=== PATIENT | female | born 1965 | race Caucasian/White ===

== ENCOUNTER → 2018-07-16 11:27 | Outpatient (CLI) | payer BC, SELFPAY ==
[2018-07-16 15:46] LABS: Abs Immature Grans 0.02 k/cumm (0.0-0.09); Absolute Basophil Count 0.02 k/cumm (0.0-0.2); Absolute Eosinophil Count 0.23 k/cumm (0.0-0.7); Absolute Lymphocyte Count 2.66 k/cumm (1.2-3.4); Absolute Monocyte Count 0.71 k/cumm (0.11-0.7); Absolute Neutrophil Count 4.89 k/cumm (1.2-6.7); Basophils % 0.2; Eosinophils % 2.7; HCT 42.2 % (36.0-46.0); HGB 14.3 g/dL (12.0-15.5); Immature Grans % 0.2; Lymphocytes % 31.2; Mean Corp. HGB Concentration 33.9 g/dL (32.0-36.0); Mean Corpuscular Hemoglobin 31.7 pg (27.0-33.0); Mean Corpuscular Volume 93.6 fL (80-95); Mean Platelet Volume 11.4 fL (8.0-11.0); Monocytes % 8.3; Neutrophils % 57.4; Platelet Count 185 x1000/uL (130-400); RBC 4.51 m/cumm (4.00-5.20); RBC Distribution Width 14.1 % (11.7-14.6); White Blood Cell Count 8.53 k/cumm (4.4-10.8)
[2018-07-16 16:04] LABS: ALT 20 U/L (12-78); AST 19 U/L (15-37); Albumin 3.7 g/dL (3.4-5.0); Alkaline Phosphatase 82 U/L (46-116); BUN 15 mg/dL (7-18); Bilirubin, Total 0.2 mg/dL (0.2-1.0); CREATININE 0.76 mg/dL (0.55-1.02); Calcium 9.2 mg/dL (8.5-10.1); Chloride 101 mmol/L (98-107); Glucose 88 mg/dL (70-100); Sodium 137 mmol/L (136-145); TSH (W/Ref FT4) 7.17 uIU/mL (0.358-3.74); Total Protein 7.5 g/dL (6.4-8.2)
[2018-07-16 16:27] LABS: FREE T4 1.39 ng/dL (0.76-1.46)
== END ==
PROVIDERS: Internal Medicine; PCP Nurse Practitioner Family; Visit Provider Nurse Practitioner Family
DX: E03.9 Hypothyroidism, unspecified (principal); Z85.3 Personal history of malignant neoplasm of breast
CPT/HCPCS: 36415; 80053; 84439; 84443; 85025

== ENCOUNTER 2018-10-06 08:08 | Outpatient (CLI) | payer BC, SELFPAY ==
[2018-10-06 14:15] LABS: ALT 23 U/L (12-78); AST 18 U/L (15-37); Albumin 3.9 g/dL (3.4-5.0); Alkaline Phosphatase 82 U/L (46-116); Anion Gap 13.6 mmol/L (3-11); BUN 16 mg/dL (7-18); Bilirubin, Total 0.3 mg/dL (0.2-1.0); CO2 23.4 mmol/L (21.0-32.0); CREATININE 0.97 mg/dL (0.55-1.02); Chloride 100 mmol/L (98-107); Glucose 128 mg/dL (70-100); Potassium 3.7 mmol/L (3.5-5.1); Sodium 137 mmol/L (136-145); Total Protein 7.6 g/dL (6.4-8.2)
[2018-10-06 14:25] LABS: TSH (W/Ref FT4) 1.16 uIU/mL (0.358-3.74)
[2018-10-06 21:42] LABS: Estradiol 39 pg/ml
[2018-10-07 09:38] LABS: FSH 16.7 mIU/ml
== END 2018-10-06 08:28 ==
PROVIDERS: PCP Nurse Practitioner Family; Visit Provider Internal Medicine
DX: E03.9 Hypothyroidism, unspecified (principal); Z85.3 Personal history of malignant neoplasm of breast; N95.1 Menopausal and female climacteric states
CPT/HCPCS: 36415; 80053; 82670; 83001; 84443

== ENCOUNTER 2018-10-14 14:27 | Outpatient (CLI) | payer BC, SELFPAY ==
--- NOTE | 2018-10-14 09:02 | DI.RAD_ITS ---
SYMPTOM/DIAGNOSIS: BRONCHITIS VS PNEUMONIA. J20.9 ACUTE BRONCHITIS CHEST X-RAY: PA, lateral. Comparison 04/03/17 The heart is normal in size. The lungs are clear. The mediastinal structures and pleura appear intact. CONCLUSION: Normal chest.
== END 2018-10-14 14:47 ==
PROVIDERS: PCP Nurse Practitioner Family; Visit Provider Family Medicine
DX: J20.9 Acute bronchitis, unspecified (principal)
CPT/HCPCS: 71046

== ENCOUNTER 2018-11-17 15:17 | Outpatient (CLI) | payer BC, SELFPAY ==
--- NOTE | 2018-11-17 14:00 | DI.RAD_ITS ---
SYMPTOMS/DIAGNOSIS: COUGH DUE TO BRONCHOSPASM, TOBACCO USE, J98.01, F17.200 PA AND LATERAL CHEST: Comparison 10/14/18. The heart is normal in size. The lungs are clear. The mediastinal structures and pleura appear intact. CONCLUSION: Normal chest.
== END 2018-11-17 15:37 ==
PROVIDERS: PCP Nurse Practitioner Family; Visit Provider Nurse Practitioner Family
DX: R05 Cough (principal); J98.01 Acute bronchospasm; F17.200 Nicotine dependence, unspecified, uncomplicated
CPT/HCPCS: 71046

== ENCOUNTER 2019-04-24 10:59 | Outpatient (CLI) | payer BC, SELFPAY ==
[2019-04-24 17:12] LABS: ALT 27 U/L (12-78); AST 15 U/L (15-37); Albumin 3.7 g/dL (3.4-5.0); Alkaline Phosphatase 85 U/L (46-116); Anion Gap 11.7 mmol/L (3-11); BUN 18 mg/dL (7-18); Bilirubin, Total 0.1 mg/dL (0.2-1.0); CO2 24.3 mmol/L (21.0-32.0); CREATININE 0.78 mg/dL (0.55-1.02); Calcium 9.2 mg/dL (8.5-10.1); Chloride 100 mmol/L (98-107); Glucose 98 mg/dL (70-100); Potassium 4.1 mmol/L (3.5-5.1); Sodium 136 mmol/L (136-145); Total Protein 6.8 g/dL (6.4-8.2)
[2019-04-24 22:19] LABS: Estradiol 32 pg/ml
[2019-04-27 10:19] LABS: FSH 17.5 mIU/ml
== END 2019-04-24 11:19 ==
PROVIDERS: PCP Nurse Practitioner Family; Visit Provider Internal Medicine
DX: N95.1 Menopausal and female climacteric states (principal); Z85.3 Personal history of malignant neoplasm of breast
CPT/HCPCS: 36415; 80053; 82670; 83001

== ENCOUNTER 2019-10-20 01:52 | Outpatient (CLI) | payer BC, SELFPAY ==
[2019-10-20 08:57] LABS: ALT 22 U/L (14-59); AST 15 U/L (15-37); Albumin 3.6 g/dL (3.4-5.0); Alkaline Phosphatase 65 U/L (46-116); Anion Gap 9.7 mmol/L (3-11); BUN 10 mg/dL (7-18); Bilirubin, Total 0.4 mg/dL (0.2-1.0); CO2 26.3 mmol/L (21.0-32.0); CREATININE 0.78 mg/dL (0.55-1.02); Calcium 8.9 mg/dL (8.5-10.1); Calculated LDL 97 mg/dL; Chloride 103 mmol/L (98-107); Cholesterol 178 mg/dL (50-200); Glucose 96 mg/dL (70-100); HDL Cholesterol 69 mg/dL (40-60); Potassium 4.5 mmol/L (3.5-5.1); Sodium 139 mmol/L (136-145); TSH (W/Ref FT4) 0.25 uIU/mL (0.36-3.74); Total Protein 6.8 g/dL (6.4-8.2); Triglyceride 61 mg/dL (30-150)
[2019-10-20 09:19] LABS: FREE T4 1.62 ng/dL (0.76-1.46)
== END 2019-10-20 02:12 ==
PROVIDERS: PCP Nurse Practitioner Family; Visit Provider Nurse Practitioner Family
DX: E03.9 Hypothyroidism, unspecified (principal); Z13.1 Encounter for screening for diabetes mellitus; Z13.220 Encounter for screening for lipoid disorders
CPT/HCPCS: 36415; 80053; 80061; 84439; 84443

== ENCOUNTER 2020-01-25 07:05 | Outpatient (CLI) | payer BC, SELFPAY ==
[2020-01-25 15:07] LABS: ALT 22 U/L (14-59); AST 17 U/L (15-37); Albumin 3.8 g/dL (3.4-5.0); Alkaline Phosphatase 76 U/L (46-116); Anion Gap 13.5 mmol/L (3-11); BUN 17 mg/dL (7-18); Bilirubin, Total 0.3 mg/dL (0.2-1.0); CO2 21.5 mmol/L (21.0-32.0); CREATININE 0.75 mg/dL (0.55-1.02); Calcium 9.2 mg/dL (8.5-10.1); Chloride 104 mmol/L (98-107); Glucose 95 mg/dL (74-106); Potassium 4.3 mmol/L (3.5-5.1); Sodium 139 mmol/L (136-145)
[2020-01-26 16:13] LABS: Estradiol 28 pg/mL (See Note); FSH 17.7 mIU/mL (See Note)
== END 2020-01-25 07:25 ==
PROVIDERS: PCP Nurse Practitioner Family; Visit Provider Internal Medicine
DX: N95.1 Menopausal and female climacteric states (principal); C50.412 Malignant neoplasm of upper-outer quadrant of left female breast; Z17.0 Estrogen receptor positive status [ER+]
CPT/HCPCS: 36415; 80053; 82670; 83001

== ENCOUNTER 2020-04-20 01:07 | Outpatient (CLI) | payer BC, SELFPAY ==
[2020-04-20 11:31] LABS: TSH (W/Ref FT4) 0.44 uIU/mL (0.36-3.74)
== END 2020-04-20 01:27 ==
PROVIDERS: PCP Nurse Practitioner Family; Visit Provider Nurse Practitioner Family
DX: E03.9 Hypothyroidism, unspecified (principal)
CPT/HCPCS: 36415; 84443

== ENCOUNTER 2020-06-20 02:32 | Outpatient (CLI) | payer BC, SELFPAY ==
[2020-06-20 13:38] LABS: Abs Immature Grans 0.02 k/cumm (0.0-0.09); Absolute Basophil Count 0.02 k/cumm (0.0-0.2); Absolute Eosinophil Count 0.25 k/cumm (0.0-0.7); Absolute Lymphocyte Count 2.35 k/cumm (1.2-3.4); Absolute Monocyte Count 0.64 k/cumm (0.11-0.7); Absolute Neutrophil Count 5.67 k/cumm (1.2-6.7); Basophils % 0.2; Eosinophils % 2.8; HCT 41.4 % (36.0-46.0); HGB 14.2 g/dL (12.0-15.5); Immature Grans % 0.2 %; Lymphocytes % 26.3; Mean Corp. HGB Concentration 34.3 g/dL (32.0-36.0); Mean Corpuscular Hemoglobin 32.5 pg (27.0-33.0); Mean Corpuscular Volume 94.7 fL (80-95); Mean Platelet Volume 11.1 fL (8.0-11.0); Monocytes % 7.2; Neutrophils % 63.3; Platelet Count 221 x1000/uL (130-400); RBC 4.37 m/cumm (4.00-5.20); RBC Distribution Width 13.7 % (11.7-14.6); White Blood Cell Count 8.95 k/cumm (4.4-10.8)
[2020-06-20 14:13] LABS: ALT 23 U/L (14-59); AST 17 U/L (15-37); Albumin 3.6 g/dL (3.4-5.0); Alkaline Phosphatase 77 U/L (46-116); BUN 19 mg/dL (7-18); Bilirubin, Total 0.2 mg/dL (0.2-1.0); CREATININE 0.76 mg/dL (0.55-1.02); Calcium 9.2 mg/dL (8.5-10.1); Chloride 103 mmol/L (98-107); Glucose 117 mg/dL (74-106); Potassium 3.8 mmol/L (3.5-5.1); Sodium 137 mmol/L (136-145); Total Protein 6.8 g/dL (6.4-8.2)
[2020-06-20 22:07] LABS: Estradiol 31 pg/mL (See Note)
[2020-06-21 09:16] LABS: FSH 16.9 mIU/mL (See Note)
== END 2020-06-20 02:52 ==
PROVIDERS: PCP Nurse Practitioner Family; Visit Provider Internal Medicine
DX: Z85.3 Personal history of malignant neoplasm of breast (principal); N95.1 Menopausal and female climacteric states
CPT/HCPCS: 36415; 80053; 82670; 83001; 85025

== ENCOUNTER 2021-01-13 02:30 | Outpatient (CLI) | payer BC, SELFPAY ==
[2021-01-13 15:07] LABS: Abs Immature Grans 0.02 10^3/uL (0.0-0.06); Absolute Basophil Count 0.04 10^3/uL (0.0-0.2); Absolute Eosinophil Count 0.19 10^3/uL (0.0-0.7); Absolute Lymphocyte Count 2.22 10^3/uL (1.2-3.4); Absolute Monocyte Count 0.72 10^3/uL (0.1-0.8); Basophils % 0.5; Eosinophils % 2.3; HCT 43.4 % (36.0-46.0); HGB 14.7 g/dL (11.2-15.7); Immature Grans % 0.2; Lymphocytes % 27.4; MCH 31.6 pg (27.0-33.0); MCHC 33.9 % (32.0-36.0); MCV 93.3 fL (80-95); MPV 11.1 fL (8.0-11.0); Monocytes % 8.9; Neutrophils % 60.7; Nucleated RBC 0 %; Platelet Count 205 10^3/uL (130-400); RBC 4.65 10^6/uL (3.93-5.22); RDW 13.2 % (11.7-14.6); RDW-SD 45.1 fL; WBC 8.09 10^3/uL (4.4-10.8)
[2021-01-13 15:50] LABS: Hemoglobin A1C 5.2 % (<5.7)
[2021-01-13 17:00] LABS: ALT 26 U/L (14-59); AST 20 U/L (15-37); Albumin 3.8 g/dL (3.4-5.0); Alkaline Phosphatase 82 U/L (46-116); Anion Gap 11.7 mmol/L (3-11); BUN 15 mg/dL (7-18); Bilirubin, Total 0.2 mg/dL (0.2-1.0); CO2 22.3 mmol/L (21.0-32.0); CREATININE 0.6 mg/dL (0.55-1.02); Calcium 9.3 mg/dL (8.5-10.1); Chloride 101 mmol/L (98-107); Glucose 89 mg/dL (74-106); Potassium 4.4 mmol/L (3.5-5.1); Sodium 135 mmol/L (136-145); Total Protein 7.1 g/dL (6.4-8.2)
[2021-01-13 17:10] LABS: TSH (W/Ref FT4) 0.26 uIU/mL (0.36-3.74)
[2021-01-13 17:27] LABS: FREE T4 1.73 ng/dL (0.76-1.46)
[2021-01-13 22:16] LABS: Estradiol 34 pg/mL (See Note)
[2021-01-13 22:30] LABS: FSH 16.2 mIU/mL (See Note)
[2021-01-16 11:17] LABS: Hepatitis C Ab w Rflx HCV PCR Negative (Negative)
[2021-01-16 12:03] LABS: HIV-1/2 Ag & Ab Screen Negative (Negative)
== END 2021-01-13 02:31 | disposition home or self-care (01) ==
LOC: LBO 02:30
PROVIDERS: Internal Medicine; PCP Nurse Practitioner Family; Visit Provider Nurse Practitioner Family
DX: R73.01 Impaired fasting glucose (principal); E03.9 Hypothyroidism, unspecified; N95.1 Menopausal and female climacteric states; Z11.4 Encounter for screening for human immunodeficiency virus [HIV]; Z11.59 Encounter for screening for other viral diseases
CPT/HCPCS: 36415; 80053; 86803; 87389; 82670; 83001; 83036; 84439; 84443; 85025

== ENCOUNTER 2021-02-16 09:18 | Outpatient (CLI) | payer BC, SELFPAY ==
[2021-02-17 13:09] LABS: COVID-19 RT-PCR UVMMC Result Negative (Negative)
== END 2021-02-16 09:19 | disposition home or self-care (01) ==
PROVIDERS: PCP Nurse Practitioner Family; Visit Provider Nurse Practitioner Family
DX: Z20.822 Contact with and (suspected) exposure to COVID-19 (principal)
CPT/HCPCS: U0003

== ENCOUNTER 2021-04-25 03:23 | Outpatient (CLI) | payer BC, SELFPAY ==
[2021-04-25 10:14] LABS: TSH (W/Ref FT4) 2.25 uIU/mL (0.36-3.74)
== END 2021-04-25 03:24 | disposition home or self-care (01) ==
LOC: LBO 03:23
PROVIDERS: PCP Nurse Practitioner Family; Visit Provider Nurse Practitioner Family
DX: E03.9 Hypothyroidism, unspecified (principal)
CPT/HCPCS: 36415; 84443

== ENCOUNTER 2021-06-27 03:33 | Outpatient (CLI) | payer BC, SELFPAY ==
[2021-06-27 11:56] LABS: ALT 24 U/L (14-59); AST 19 U/L (15-37); Albumin 3.6 g/dL (3.4-5.0); Alkaline Phosphatase 75 U/L (46-116); Anion Gap 8.8 mmol/L (3-11); BUN 11 mg/dL (7-18); Bilirubin, Total 0.3 mg/dL (0.2-1.0); CO2 26.2 mmol/L (21.0-32.0); CREATININE 0.7 mg/dL (0.55-1.02); Calcium 9.1 mg/dL (8.5-10.1); Chloride 104 mmol/L (98-107); Glucose 101 mg/dL (74-106); Potassium 4.8 mmol/L (3.5-5.1); Sodium 139 mmol/L (136-145)
[2021-06-27 16:40] LABS: Estradiol 32 pg/mL (See Note)
[2021-06-27 17:19] LABS: FSH 16.4 mIU/mL (See Note)
== END 2021-06-27 03:34 | disposition home or self-care (01) ==
PROVIDERS: PCP Nurse Practitioner Family; Visit Provider Nurse Practitioner Adult Health
DX: N95.1 Menopausal and female climacteric states (principal); Z85.3 Personal history of malignant neoplasm of breast
CPT/HCPCS: 80053; 82670; 83001

== ENCOUNTER 2022-01-08 03:44 | Outpatient (CLI) | payer BC, SELFPAY ==
[2022-01-08 16:51] LABS: ALT 27 U/L (14-59); AST 21 U/L (15-37); Albumin 4.1 g/dL (3.4-5.0); Alkaline Phosphatase 88 U/L (46-116); Anion Gap 15.6 mmol/L (3-11); BUN 19 mg/dL (7-18); Bilirubin, Total 0.3 mg/dL (0.2-1.0); CO2 20.4 mmol/L (21.0-32.0); CREATININE 0.7 mg/dL (0.55-1.02); Calcium 9.3 mg/dL (8.5-10.1); Chloride 99 mmol/L (98-107); Glucose 89 mg/dL (74-106); Potassium 4.5 mmol/L (3.5-5.1); Sodium 135 mmol/L (136-145); Total Protein 7.7 g/dL (6.4-8.2)
[2022-01-08 22:29] LABS: Estradiol 29 pg/mL (See Note)
== END 2022-01-08 03:45 | disposition home or self-care (01) ==
LOC: LBO 03:45
PROVIDERS: PCP Nurse Practitioner Family; Visit Provider Nurse Practitioner Adult Health
DX: N95.1 Menopausal and female climacteric states (principal); Z85.3 Personal history of malignant neoplasm of breast
CPT/HCPCS: 36415; 80053; 82670; 83001

== ENCOUNTER 2022-04-17 02:14 | Outpatient (CLI) | payer BC, SELFPAY | END 2022-04-17 02:15 | disposition home or self-care (01) | LOC: LBO 02:15 | PROVIDERS: PCP Nurse Practitioner Family; Visit Provider Internal Medicine ==

== ENCOUNTER 2022-05-08 01:22 | Outpatient (CLI) | payer BC, SELFPAY ==
[2022-05-08 15:42] LABS: ALT 25 U/L (14-59); AST 22 U/L (15-37); Albumin 3.6 g/dL (3.4-5.0); Alkaline Phosphatase 79 U/L (46-116); Anion Gap 12.3 mmol/L (3-11); BUN 10 mg/dL (7-18); Bilirubin, Total 0.4 mg/dL (0.2-1.0); CO2 21.7 mmol/L (21.0-32.0); Chloride 99 mmol/L (98-107); Estimated GFR 57.78 (mL/min/1.73m2); Glucose 124 mg/dL (74-106); Potassium 3.6 mmol/L (3.5-5.1); Sodium 133 mmol/L (136-145); Total Protein 7.4 g/dL (6.4-8.2)
[2022-05-08 16:35] LABS: FREE T4 1.48 ng/dL (0.76-1.46)
== END 2022-05-08 01:23 | disposition home or self-care (01) ==
LOC: LBO 01:23
PROVIDERS: PCP Nurse Practitioner Family; Visit Provider Internal Medicine
DX: E03.9 Hypothyroidism, unspecified (principal); C50.912 Malignant neoplasm of unspecified site of left female breast; Z17.0 Estrogen receptor positive status [ER+]
CPT/HCPCS: 36415; 80053; 84439; 84443

== ENCOUNTER 2022-07-10 03:24 | Outpatient (CLI) | payer BC, SELFPAY ==
[2022-07-10 11:22] LABS: TSH (W/Ref FT4) 4.67 uIU/mL (0.36-3.74)
[2022-07-10 11:40] LABS: FREE T4 1.44 ng/dL (0.76-1.46)
== END 2022-07-10 03:25 | disposition home or self-care (01) ==
LOC: LBO 03:24
PROVIDERS: Internal Medicine; PCP Nurse Practitioner Family; Visit Provider Nurse Practitioner Family
DX: E03.9 Hypothyroidism, unspecified (principal)
CPT/HCPCS: 36415; 84439; 84443

== ENCOUNTER 2022-12-18 08:31 | Outpatient (CLI) | payer BC, SELFPAY ==
[2022-12-18 08:20] LABS: Abs Immature Grans 0.03 10^3/uL (0.0-0.06); Absolute Basophil Count 0.03 10^3/uL (0.0-0.2); Absolute Eosinophil Count 0.17 10^3/uL (0.0-0.7); Absolute Lymphocyte Count 2.06 10^3/uL (1.2-3.4); Absolute Monocyte Count 0.68 10^3/uL (0.1-0.8); Basophils % 0.4; Eosinophils % 2.4; HGB 14.3 g/dL (11.2-15.7); Immature Grans % 0.4; Lymphocytes % 29.1; MCH 32.9 pg (27.0-33.0); MCV 97 fL (80-95); MPV 9.6 fL (8.0-11.0); Monocytes % 9.6; Neutrophils % 58.1; Platelet Count 214 10^3/uL (130-400); RBC 4.35 10^6/uL (3.93-5.22); RDW 13.5 % (11.7-14.6); RDW-SD 48.7 fL; WBC 7.07 10^3/uL (4.4-10.8)
[2022-12-18 08:52] LABS: ALT 21 U/L (14-59); AST 26 U/L (15-37); Alkaline Phosphatase 83 U/L (46-116); Anion Gap 9.1 mmol/L (3-11); BUN 7 mg/dL (7-18); Bilirubin, Total 0.5 mg/dL (0.2-1.0); CO2 25.9 mmol/L (21.0-32.0); CREATININE 0.8 mg/dL (0.55-1.02); Calcium 9.2 mg/dL (8.5-10.1); Chloride 94 mmol/L (98-107); Estimated GFR 86.96 (mL/min/1.73m2); Glucose 108 mg/dL (74-106); Potassium 4.1 mmol/L (3.5-5.1); Sodium 129 mmol/L (136-145); Total Protein 7.8 g/dL (6.4-8.2)
== END 2022-12-18 08:32 | disposition home or self-care (01) ==
LOC: LBO 08:32
PROVIDERS: PCP Nurse Practitioner Family; Visit Provider Internal Medicine
DX: C50.412 Malignant neoplasm of upper-outer quadrant of left female breast (principal); Z17.0 Estrogen receptor positive status [ER+]
CPT/HCPCS: 36415; 80053; 85025

== ENCOUNTER 2023-01-01 03:15 | Outpatient (CLI) | payer BC, SELFPAY ==
[2023-01-01 09:14] LABS: Abs Immature Grans 0.02 10^3/uL (0.0-0.06); Absolute Basophil Count 0.04 10^3/uL (0.0-0.2); Absolute Eosinophil Count 0.13 10^3/uL (0.0-0.7); Absolute Lymphocyte Count 1.42 10^3/uL (1.2-3.4); Absolute Monocyte Count 0.22 10^3/uL (0.1-0.8); Absolute Neutrophil Count 3.32 10^3/uL (1.2-6.7); Basophils % 0.8; Eosinophils % 2.5; HCT 40.4 % (36.0-46.0); HGB 14.1 g/dL (11.2-15.7); Immature Grans % 0.4; Lymphocytes % 27.6; MCH 33.3 pg (27.0-33.0); MCHC 34.9 % (32.0-36.0); MCV 95 fL (80-95); MPV 9.5 fL (8.0-11.0); Monocytes % 4.3; Neutrophils % 64.4; Platelet Count 245 10^3/uL (130-400); RBC 4.24 10^6/uL (3.93-5.22); RDW 12.6 % (11.7-14.6); RDW-SD 44.3 fL; WBC 5.15 10^3/uL (4.4-10.8)
[2023-01-01 09:38] LABS: ALT 19 U/L (14-59); AST 18 U/L (15-37); Albumin 3.9 g/dL (3.4-5.0); Alkaline Phosphatase 83 U/L (46-116); Anion Gap 10.3 mmol/L (3-11); BUN 8 mg/dL (7-18); Bilirubin, Total 0.6 mg/dL (0.2-1.0); CO2 24.7 mmol/L (21.0-32.0); CREATININE 0.9 mg/dL (0.55-1.02); Calcium 9.2 mg/dL (8.5-10.1); Chloride 96 mmol/L (98-107); Glucose 140 mg/dL (74-106); Potassium 3.9 mmol/L (3.5-5.1); Sodium 131 mmol/L (136-145); Total Protein 7.4 g/dL (6.4-8.2)
== END 2023-01-01 03:16 | disposition home or self-care (01) ==
LOC: LBO 03:15
PROVIDERS: PCP Nurse Practitioner Family; Visit Provider Internal Medicine
DX: C50.912 Malignant neoplasm of unspecified site of left female breast (principal); Z17.0 Estrogen receptor positive status [ER+]
CPT/HCPCS: 36415; 80053; 85025

== ENCOUNTER 2023-01-15 02:36 | Outpatient (CLI) | payer BC, SELFPAY ==
[2023-01-15 08:05] LABS: Absolute Lymphocyte Count 0.86 10^3/uL (1.2-3.4); HGB 12.8 g/dL (11.2-15.7); MCH 33.3 pg (27.0-33.0); MCHC 34.6 % (32.0-36.0); MCV 96 fL (80-95); Platelet Count 94 10^3/uL (130-400); RBC 3.84 10^6/uL (3.93-5.22); RDW 12.6 % (11.7-14.6)
[2023-01-15 08:21] LABS: ALT 14 U/L (14-59); AST 16 U/L (15-37); Albumin 3.8 g/dL (3.4-5.0); Alkaline Phosphatase 61 U/L (46-116); BUN 8 mg/dL (7-18); Bilirubin, Total 0.5 mg/dL (0.2-1.0); CREATININE 0.7 mg/dL (0.55-1.02); Calcium 8.8 mg/dL (8.5-10.1); Chloride 100 mmol/L (98-107); Estimated GFR 102.07 (mL/min/1.73m2); Glucose 99 mg/dL (74-106); Potassium 4.3 mmol/L (3.5-5.1); Sodium 135 mmol/L (136-145); Total Protein 7.3 g/dL (6.4-8.2)
[2023-01-15 08:29] LABS: Absolute Basophil Count 0.05 10^3/uL (0.0-0.2); Absolute Eosinophil Count 0.05 10^3/uL (0.0-0.7); Absolute Monocyte Count 0.07 10^3/uL (0.1-0.8); Absolute Neutrophil Count 0.72 10^3/uL (1.2-6.7); Diff Comment Manual Differential; RBC Morphology Normal
[2023-01-15 08:34] LABS: WBC 1.75 10^3/uL (4.4-10.8)
== END 2023-01-15 02:37 | disposition home or self-care (01) ==
LOC: LBO 02:36
PROVIDERS: PCP Nurse Practitioner Family; Visit Provider Internal Medicine
DX: C50.412 Malignant neoplasm of upper-outer quadrant of left female breast (principal); Z17.0 Estrogen receptor positive status [ER+]
CPT/HCPCS: 36415; 80053; 85025

== ENCOUNTER 2023-01-22 02:00 | Outpatient (CLI) | payer BC, SELFPAY ==
[2023-01-22 08:18] LABS: Absolute Basophil Count 0.02 10^3/uL (0.0-0.2); Absolute Eosinophil Count 0.07 10^3/uL (0.0-0.7); Absolute Lymphocyte Count 0.62 10^3/uL (1.2-3.4); Absolute Monocyte Count 0.43 10^3/uL (0.1-0.8); Absolute Neutrophil Count 1.18 10^3/uL (1.2-6.7); Basophils % 0.9; HCT 37.1 % (36.0-46.0); Lymphocytes % 26.7; MCH 33.2 pg (27.0-33.0); MCV 95 fL (80-95); MPV 9.3 fL (8.0-11.0); Monocytes % 18.5; Neutrophils % 50.9; Platelet Count 171 10^3/uL (130-400); RBC 3.92 10^6/uL (3.93-5.22); RDW 13.2 % (11.7-14.6); RDW-SD 45.4 fL; WBC 2.32 10^3/uL (4.4-10.8)
[2023-01-22 08:34] LABS: ALT 17 U/L (14-59); AST 12 U/L (15-37); Albumin 3.7 g/dL (3.4-5.0); Alkaline Phosphatase 64 U/L (46-116); Anion Gap 7.8 mmol/L (3-11); BUN 6 mg/dL (7-18); Bilirubin, Total 0.2 mg/dL (0.2-1.0); CO2 26.2 mmol/L (21.0-32.0); CREATININE 0.7 mg/dL (0.55-1.02); Chloride 99 mmol/L (98-107); Estimated GFR 102.07 (mL/min/1.73m2); Glucose 109 mg/dL (74-106); Potassium 4.2 mmol/L (3.5-5.1); Sodium 133 mmol/L (136-145); Total Protein 7.2 g/dL (6.4-8.2)
== END 2023-01-22 02:01 | disposition home or self-care (01) ==
LOC: LBO 02:00
PROVIDERS: PCP Nurse Practitioner Family; Visit Provider Internal Medicine
DX: C50.912 Malignant neoplasm of unspecified site of left female breast (principal); Z17.0 Estrogen receptor positive status [ER+]
CPT/HCPCS: 36415; 80053; 85025

== ENCOUNTER 2023-02-05 03:38 | Outpatient (CLI) | payer BC, SELFPAY ==
[2023-02-05 10:05] LABS: Absolute Basophil Count 0.04 10^3/uL (0.0-0.2); Absolute Eosinophil Count 0.14 10^3/uL (0.0-0.7); Absolute Monocyte Count 0.23 10^3/uL (0.1-0.8); Absolute Neutrophil Count 1.38 10^3/uL (1.2-6.7); Basophils % 1.6; Eosinophils % 5.6; HCT 38.5 % (36.0-46.0); HGB 13.4 g/dL (11.2-15.7); Lymphocytes % 28.1; MCH 33.3 pg (27.0-33.0); MCHC 34.8 % (32.0-36.0); MCV 96 fL (80-95); MPV 9.9 fL (8.0-11.0); Monocytes % 9.2; Neutrophils % 55.5; Platelet Count 227 10^3/uL (130-400); RBC 4.03 10^6/uL (3.93-5.22); RDW 13.5 % (11.7-14.6); RDW-SD 47.7 fL; WBC 2.49 10^3/uL (4.4-10.8)
[2023-02-05 10:23] LABS: ALT 20 U/L (14-59); AST 14 U/L (15-37); Albumin 3.9 g/dL (3.4-5.0); Alkaline Phosphatase 66 U/L (46-116); Anion Gap 8.7 mmol/L (3-11); BUN 10 mg/dL (7-18); Bilirubin, Total 0.3 mg/dL (0.2-1.0); CO2 27.3 mmol/L (21.0-32.0); CREATININE 0.8 mg/dL (0.55-1.02); Calcium 9.5 mg/dL (8.5-10.1); Chloride 100 mmol/L (98-107); Estimated GFR 86.96 (mL/min/1.73m2); Glucose 102 mg/dL (74-106); Potassium 4.6 mmol/L (3.5-5.1); Sodium 136 mmol/L (136-145); Total Protein 7.6 g/dL (6.4-8.2)
== END 2023-02-05 03:39 | disposition home or self-care (01) ==
LOC: LBO 03:38
PROVIDERS: PCP Nurse Practitioner Family; Visit Provider Internal Medicine
DX: C50.912 Malignant neoplasm of unspecified site of left female breast (principal); Z17.0 Estrogen receptor positive status [ER+]
CPT/HCPCS: 36415; 80053; 85025

== ENCOUNTER 2023-02-12 02:30 | Outpatient (CLI) | payer BC, SELFPAY ==
[2023-02-12 08:37] LABS: Abs Immature Grans 0.01 10^3/uL (0.0-0.06); Absolute Basophil Count 0.04 10^3/uL (0.0-0.2); Absolute Eosinophil Count 0.17 10^3/uL (0.0-0.7); Absolute Lymphocyte Count 0.63 10^3/uL (1.2-3.4); Absolute Monocyte Count 0.24 10^3/uL (0.1-0.8); Absolute Neutrophil Count 0.78 10^3/uL (1.2-6.7); Basophils % 2.1; Eosinophils % 9.1; HCT 36.2 % (36.0-46.0); HGB 12.5 g/dL (11.2-15.7); Immature Grans % 0.5; Lymphocytes % 33.7; MCH 33.4 pg (27.0-33.0); MCHC 34.5 % (32.0-36.0); MCV 97 fL (80-95); MPV 9.5 fL (8.0-11.0); Monocytes % 12.8; Neutrophils % 41.8; Platelet Count 106 10^3/uL (130-400); RBC 3.74 10^6/uL (3.93-5.22)
[2023-02-12 08:48] LABS: WBC 1.87 10^3/uL (4.4-10.8)
[2023-02-12 08:52] LABS: ALT 20 U/L (14-59); AST 14 U/L (15-37); Albumin 3.5 g/dL (3.4-5.0); Alkaline Phosphatase 59 U/L (46-116); Anion Gap 11.5 mmol/L (3-11); BUN 9 mg/dL (7-18); Bilirubin, Total 0.3 mg/dL (0.2-1.0); CO2 24.5 mmol/L (21.0-32.0); CREATININE 0.8 mg/dL (0.55-1.02); Calcium 8.9 mg/dL (8.5-10.1); Chloride 102 mmol/L (98-107); Estimated GFR 86.96 (mL/min/1.73m2); Glucose 97 mg/dL (74-106); Potassium 4.3 mmol/L (3.5-5.1); Sodium 138 mmol/L (136-145); Total Protein 7.3 g/dL (6.4-8.2)
[2023-02-12 09:11] LABS: RBC Morphology Normal
[2023-02-12 09:12] LABS: Diff Comment Agrees w/ Instrument
== END 2023-02-12 02:31 | disposition home or self-care (01) ==
PROVIDERS: PCP Nurse Practitioner Family; Visit Provider Internal Medicine
DX: C50.912 Malignant neoplasm of unspecified site of left female breast (principal); Z17.0 Estrogen receptor positive status [ER+]
CPT/HCPCS: 36415; 80053; 85025

== ENCOUNTER 2023-02-18 04:03 | Outpatient (CLI) | payer BC, SELFPAY ==
[2023-02-18 09:34] LABS: Absolute Basophil Count 0.03 10^3/uL (0.0-0.2); Absolute Eosinophil Count 0.27 10^3/uL (0.0-0.7); Absolute Lymphocyte Count 0.73 10^3/uL (1.2-3.4); Absolute Monocyte Count 0.34 10^3/uL (0.1-0.8); Absolute Neutrophil Count 0.77 10^3/uL (1.2-6.7); Basophils % 1.4; Eosinophils % 12.6; HCT 35.5 % (36.0-46.0); HGB 12.8 g/dL (11.2-15.7); Lymphocytes % 34.1; MCH 33.9 pg (27.0-33.0); MCHC 36.1 % (32.0-36.0); MCV 94 fL (80-95); MPV 9.3 fL (8.0-11.0); Monocytes % 15.9; Platelet Count 159 10^3/uL (130-400); RBC 3.78 10^6/uL (3.93-5.22); RDW 14.6 % (11.7-14.6); RDW-SD 49.7 fL; WBC 2.14 10^3/uL (4.4-10.8)
[2023-02-18 09:51] LABS: ALT 21 U/L (14-59); AST 13 U/L (15-37); Albumin 3.7 g/dL (3.4-5.0); Alkaline Phosphatase 61 U/L (46-116); Anion Gap 9.9 mmol/L (3-11); BUN 9 mg/dL (7-18); Bilirubin, Total 0.2 mg/dL (0.2-1.0); CO2 25.1 mmol/L (21.0-32.0); CREATININE 0.9 mg/dL (0.55-1.02); Chloride 100 mmol/L (98-107); Glucose 108 mg/dL (74-106); Potassium 4.6 mmol/L (3.5-5.1); Sodium 135 mmol/L (136-145); Total Protein 7.5 g/dL (6.4-8.2)
[2023-02-18 09:57] LABS: Diff Comment Diff Reviewed
[2023-02-18 09:58] LABS: RBC Morphology Normal
== END 2023-02-18 04:04 | disposition home or self-care (01) ==
LOC: LBO 04:03
PROVIDERS: PCP Nurse Practitioner Family; Visit Provider Nurse Practitioner Family
DX: C50.912 Malignant neoplasm of unspecified site of left female breast (principal); Z17.0 Estrogen receptor positive status [ER+]
CPT/HCPCS: 36415; 80053; 85025

== ENCOUNTER 2023-02-25 02:25 | Outpatient (CLI) | payer BC, SELFPAY ==
[2023-02-25 09:20] LABS: Abs Immature Grans 0.01 10^3/uL (0.0-0.06); Absolute Eosinophil Count 0.13 10^3/uL (0.0-0.7); Absolute Lymphocyte Count 1.02 10^3/uL (1.2-3.4); Absolute Neutrophil Count 1.84 10^3/uL (1.2-6.7); Basophils % 2.7; Eosinophils % 3.5; HCT 35.6 % (36.0-46.0); HGB 12.5 g/dL (11.2-15.7); Immature Grans % 0.3; Lymphocytes % 27.6; MCH 33.4 pg (27.0-33.0); MCHC 35.1 % (32.0-36.0); MCV 95 fL (80-95); MPV 8.9 fL (8.0-11.0); Monocytes % 16.2; Neutrophils % 49.7; Platelet Count 274 10^3/uL (130-400); RBC 3.74 10^6/uL (3.93-5.22); RDW-SD 52.6 fL
[2023-02-25 09:43] LABS: ALT 29 U/L (14-59); AST 22 U/L (15-37); Albumin 3.6 g/dL (3.4-5.0); Alkaline Phosphatase 57 U/L (46-116); Anion Gap 9.6 mmol/L (3-11); BUN 6 mg/dL (7-18); Bilirubin, Total 0.2 mg/dL (0.2-1.0); CO2 23.4 mmol/L (21.0-32.0); CREATININE 0.7 mg/dL (0.55-1.02); Chloride 98 mmol/L (98-107); Estimated GFR 102.07 (mL/min/1.73m2); Glucose 100 mg/dL (74-106); Potassium 4.2 mmol/L (3.5-5.1); Sodium 131 mmol/L (136-145); Total Protein 7.2 g/dL (6.4-8.2)
== END 2023-02-25 02:26 | disposition home or self-care (01) ==
LOC: LBO 02:25
PROVIDERS: PCP Nurse Practitioner Family; Visit Provider Internal Medicine
DX: C50.912 Malignant neoplasm of unspecified site of left female breast (principal); Z17.0 Estrogen receptor positive status [ER+]
CPT/HCPCS: 36415; 80053; 85025

== ENCOUNTER 2023-03-12 09:29 | Outpatient (CLI) | payer BC, SELFPAY ==
[2023-03-12 09:33] LABS: Abs Immature Grans 0.01 10^3/uL (0.0-0.06); Absolute Basophil Count 0.02 10^3/uL (0.0-0.2); Absolute Eosinophil Count 0.23 10^3/uL (0.0-0.7); Absolute Lymphocyte Count 0.71 10^3/uL (1.2-3.4); Absolute Monocyte Count 0.21 10^3/uL (0.1-0.8); Basophils % 0.7; Eosinophils % 8.3; HCT 36.1 % (36.0-46.0); HGB 12.3 g/dL (11.2-15.7); Immature Grans % 0.4; Lymphocytes % 25.5; MCH 33.7 pg (27.0-33.0); MCHC 34.1 % (32.0-36.0); MCV 99 fL (80-95); MPV 9.3 fL (8.0-11.0); Monocytes % 7.6; Neutrophils % 57.5; Platelet Count 223 10^3/uL (130-400); RBC 3.65 10^6/uL (3.93-5.22); RDW 16.3 % (11.7-14.6); RDW-SD 59.7 fL; WBC 2.78 10^3/uL (4.4-10.8)
[2023-03-12 09:47] LABS: ALT 25 U/L (14-59); AST 14 U/L (15-37); Albumin 3.7 g/dL (3.4-5.0); Alkaline Phosphatase 67 U/L (46-116); BUN 12 mg/dL (7-18); Bilirubin, Total 0.4 mg/dL (0.2-1.0); CREATININE 0.8 mg/dL (0.55-1.02); Calcium 9.2 mg/dL (8.5-10.1); Chloride 100 mmol/L (98-107); Estimated GFR 86.96 (mL/min/1.73m2); Glucose 91 mg/dL (74-106); Potassium 4.3 mmol/L (3.5-5.1); Sodium 130 mmol/L (136-145); Total Protein 7.5 g/dL (6.4-8.2)
[2023-03-13 19:56] LABS: Cancer Ag 15-3 15 U/mL (<30)
== END 2023-03-12 09:30 | disposition home or self-care (01) ==
LOC: LBO 09:29
PROVIDERS: PCP Nurse Practitioner Family; Visit Provider Internal Medicine
DX: C50.912 Malignant neoplasm of unspecified site of left female breast (principal); Z17.0 Estrogen receptor positive status [ER+]; C79.51 Secondary malignant neoplasm of bone; D70.2 Other drug-induced agranulocytosis
CPT/HCPCS: 36415; 80053; 86304; 85025; 86300

== ENCOUNTER 2023-04-09 02:17 | Outpatient (CLI) | payer BC, SELFPAY ==
[2023-04-09 12:17] LABS: Abs Immature Grans 0.01 10^3/uL (0.0-0.06); Absolute Basophil Count 0.04 10^3/uL (0.0-0.2); Absolute Eosinophil Count 0.08 10^3/uL (0.0-0.7); Absolute Lymphocyte Count 0.75 10^3/uL (1.2-3.4); Absolute Monocyte Count 0.21 10^3/uL (0.1-0.8); Absolute Neutrophil Count 2.36 10^3/uL (1.2-6.7); Basophils % 1.2; Eosinophils % 2.3; HCT 34.3 % (36.0-46.0); HGB 11.9 g/dL (11.2-15.7); Immature Grans % 0.3; Lymphocytes % 21.7; MCH 36.4 pg (27.0-33.0); MCHC 34.7 % (32.0-36.0); MCV 105 fL (80-95); MPV 9.4 fL (8.0-11.0); Monocytes % 6.1; Neutrophils % 68.4; Platelet Count 232 10^3/uL (130-400); RBC 3.27 10^6/uL (3.93-5.22); RDW 16.7 % (11.7-14.6); RDW-SD 64.8 fL; WBC 3.45 10^3/uL (4.4-10.8)
[2023-04-09 12:37] LABS: ALT 20 U/L (14-59); AST 15 U/L (15-37); Albumin 3.7 g/dL (3.4-5.0); Alkaline Phosphatase 74 U/L (46-116); Anion Gap 6.3 mmol/L (3-11); BUN 9 mg/dL (7-18); Bilirubin, Total 0.3 mg/dL (0.2-1.0); CO2 27.7 mmol/L (21.0-32.0); CREATININE 0.8 mg/dL (0.55-1.02); Calcium 9.1 mg/dL (8.5-10.1); Chloride 102 mmol/L (98-107); Estimated GFR 86.96 (mL/min/1.73m2); Glucose 109 mg/dL (74-106); Potassium 4.2 mmol/L (3.5-5.1); Sodium 136 mmol/L (136-145); Total Protein 7.4 g/dL (6.4-8.2)
[2023-04-10 20:47] LABS: Cancer Ag 15-3 17 U/mL (<30)
== END 2023-04-09 02:18 | disposition home or self-care (01) ==
LOC: LBO 02:17
PROVIDERS: PCP Nurse Practitioner Family; Visit Provider Internal Medicine
DX: C50.412 Malignant neoplasm of upper-outer quadrant of left female breast (principal); Z17.0 Estrogen receptor positive status [ER+]; C79.51 Secondary malignant neoplasm of bone
CPT/HCPCS: 36415; 80053; 86304; 85025; 86300

== ENCOUNTER 2023-05-07 03:08 | Outpatient (CLI) | payer BC, SELFPAY ==
[2023-05-07 08:39] LABS: Abs Immature Grans 0.01 10^3/uL (0.0-0.06); Absolute Basophil Count 0.04 10^3/uL (0.0-0.2); Absolute Eosinophil Count 0.13 10^3/uL (0.0-0.7); Absolute Lymphocyte Count 0.86 10^3/uL (1.2-3.4); Absolute Monocyte Count 0.19 10^3/uL (0.1-0.8); Absolute Neutrophil Count 1.49 10^3/uL (1.2-6.7); Basophils % 1.5; Eosinophils % 4.8; HCT 37.9 % (36.0-46.0); HGB 13.5 g/dL (11.2-15.7); Immature Grans % 0.4; Lymphocytes % 31.6; MCH 37.4 pg (27.0-33.0); MCHC 35.6 % (32.0-36.0); MCV 105 fL (80-95); MPV 9.3 fL (8.0-11.0); Neutrophils % 54.7; Platelet Count 221 10^3/uL (130-400); RBC 3.61 10^6/uL (3.93-5.22); RDW 14.4 % (11.7-14.6); RDW-SD 56.3 fL; WBC 2.72 10^3/uL (4.4-10.8)
[2023-05-07 09:01] LABS: ALT 20 U/L (14-59); AST 16 U/L (15-37); Alkaline Phosphatase 70 U/L (46-116); Anion Gap 9.4 mmol/L (3-11); BUN 9 mg/dL (7-18); Bilirubin, Total 0.4 mg/dL (0.2-1.0); CO2 24.6 mmol/L (21.0-32.0); CREATININE 1.1 mg/dL (0.55-1.02); Calcium 9.4 mg/dL (8.5-10.1); Chloride 99 mmol/L (98-107); Estimated GFR 59.34 (mL/min/1.73m2); Glucose 119 mg/dL (74-106); Potassium 3.9 mmol/L (3.5-5.1); Sodium 133 mmol/L (136-145); Total Protein 7.9 g/dL (6.4-8.2)
[2023-05-08 17:08] LABS: Cancer Ag 15-3 18 U/mL (<30)
== END 2023-05-07 03:09 | disposition home or self-care (01) ==
LOC: LBO 03:09
PROVIDERS: PCP Nurse Practitioner Family; Visit Provider Internal Medicine
DX: C50.412 Malignant neoplasm of upper-outer quadrant of left female breast (principal); Z17.0 Estrogen receptor positive status [ER+]; C79.51 Secondary malignant neoplasm of bone
CPT/HCPCS: 36415; 80053; 86304; 85025; 86300

== ENCOUNTER 2023-06-03 03:04 | Outpatient (CLI) | payer BC, SELFPAY ==
[2023-06-03 07:16] LABS: Abs Immature Grans 0.02 10^3/uL (0.0-0.06); Absolute Basophil Count 0.05 10^3/uL (0.0-0.2); Absolute Eosinophil Count 0.14 10^3/uL (0.0-0.7); Absolute Lymphocyte Count 0.89 10^3/uL (1.2-3.4); Absolute Monocyte Count 0.24 10^3/uL (0.1-0.8); Basophils % 1.7; Eosinophils % 4.8; HCT 35.5 % (36.0-46.0); HGB 12.8 g/dL (11.2-15.7); Immature Grans % 0.7; Lymphocytes % 30.3; MCH 37.5 pg (27.0-33.0); MCHC 36.1 % (32.0-36.0); MCV 104 fL (80-95); MPV 9.4 fL (8.0-11.0); Monocytes % 8.2; Neutrophils % 54.3; Platelet Count 257 10^3/uL (130-400); RBC 3.41 10^6/uL (3.93-5.22); RDW-SD 54.1 fL; WBC 2.94 10^3/uL (4.4-10.8)
[2023-06-03 07:31] LABS: ALT 19 U/L (14-59); AST 20 U/L (15-37); Albumin 3.7 g/dL (3.4-5.0); Alkaline Phosphatase 66 U/L (46-116); Anion Gap 8.5 mmol/L (3-11); BUN 9 mg/dL (7-18); Bilirubin, Total 0.5 mg/dL (0.2-1.0); CO2 25.5 mmol/L (21.0-32.0); CREATININE 0.8 mg/dL (0.55-1.02); Calcium 9.1 mg/dL (8.5-10.1); Chloride 100 mmol/L (98-107); Estimated GFR 86.96 (mL/min/1.73m2); Glucose 93 mg/dL (74-106); Sodium 134 mmol/L (136-145); Total Protein 7.5 g/dL (6.4-8.2)
[2023-06-07 11:06] LABS: Cancer Ag 15-3 16 U/mL (<30)
== END 2023-06-03 03:05 | disposition home or self-care (01) ==
PROVIDERS: PCP Nurse Practitioner Family; Visit Provider Nurse Practitioner Adult Health
DX: C50.919 Malignant neoplasm of unspecified site of unspecified female breast (principal); C79.51 Secondary malignant neoplasm of bone
CPT/HCPCS: 36415; 80053; 86304; 85025; 86300

== ENCOUNTER 2023-07-02 02:58 | Outpatient (CLI) | payer BC, SELFPAY ==
[2023-07-02 08:16] LABS: Abs Immature Grans 0.01 10^3/uL (0.0-0.06); Absolute Basophil Count 0.04 10^3/uL (0.0-0.2); Absolute Eosinophil Count 0.13 10^3/uL (0.0-0.7); Absolute Lymphocyte Count 0.92 10^3/uL (1.2-3.4); Absolute Monocyte Count 0.19 10^3/uL (0.1-0.8); Absolute Neutrophil Count 1.34 10^3/uL (1.2-6.7); Basophils % 1.5; Eosinophils % 4.9; HCT 34.8 % (36.0-46.0); HGB 12.7 g/dL (11.2-15.7); Immature Grans % 0.4; MCH 38.4 pg (27.0-33.0); MCHC 36.5 % (32.0-36.0); MPV 9.4 fL (8.0-11.0); Monocytes % 7.2; Platelet Count 238 10^3/uL (130-400); RBC 3.31 10^6/uL (3.93-5.22); RDW-SD 54.3 fL; WBC 2.63 10^3/uL (4.4-10.8)
[2023-07-02 08:23] LABS: MCV 105 fL (80-95)
[2023-07-02 08:31] LABS: ALT 21 U/L (14-59); AST 22 U/L (15-37); Albumin 3.8 g/dL (3.4-5.0); Alkaline Phosphatase 61 U/L (46-116); BUN 9 mg/dL (7-18); Bilirubin, Total 0.6 mg/dL (0.2-1.0); CREATININE 0.9 mg/dL (0.55-1.02); Chloride 99 mmol/L (98-107); Glucose 88 mg/dL (74-106); Potassium 3.7 mmol/L (3.5-5.1); Sodium 135 mmol/L (136-145); Total Protein 7.2 g/dL (6.4-8.2)
[2023-07-03 21:59] LABS: Cancer Ag 15-3 17 U/mL (<30)
== END 2023-07-02 02:59 | disposition home or self-care (01) ==
PROVIDERS: PCP Nurse Practitioner Family; Visit Provider Internal Medicine
DX: C50.211 Malignant neoplasm of upper-inner quadrant of right female breast (principal); Z17.0 Estrogen receptor positive status [ER+]
CPT/HCPCS: 36415; 80053; 86304; 85025; 86300

== ENCOUNTER 2023-07-30 02:39 | Outpatient (CLI) | payer BC, SELFPAY ==
[2023-07-30 11:46] LABS: Abs Immature Grans 0.03 10^3/uL (0.0-0.06); Absolute Basophil Count 0.04 10^3/uL (0.0-0.2); Absolute Eosinophil Count 0.08 10^3/uL (0.0-0.7); Absolute Lymphocyte Count 0.76 10^3/uL (1.2-3.4); Absolute Monocyte Count 0.19 10^3/uL (0.1-0.8); Absolute Neutrophil Count 2.31 10^3/uL (1.2-6.7); Basophils % 1.2; Eosinophils % 2.3; HGB 12.2 g/dL (11.2-15.7); Immature Grans % 0.9; Lymphocytes % 22.3; MCH 38.6 pg (27.0-33.0); MCHC 35.9 % (32.0-36.0); MCV 108 fL (80-95); MPV 9.5 fL (8.0-11.0); Monocytes % 5.6; Neutrophils % 67.7; Platelet Count 231 10^3/uL (130-400); RBC 3.16 10^6/uL (3.93-5.22); RDW 14.2 % (11.7-14.6); RDW-SD 56.2 fL; WBC 3.41 10^3/uL (4.4-10.8)
[2023-07-30 12:01] LABS: ALT 19 U/L (14-59); AST 21 U/L (15-37); Albumin 3.8 g/dL (3.4-5.0); Alkaline Phosphatase 67 U/L (46-116); Anion Gap 7.9 mmol/L (3-11); BUN 12 mg/dL (7-18); Bilirubin, Total 0.4 mg/dL (0.2-1.0); CO2 25.1 mmol/L (21.0-32.0); Calcium 8.7 mg/dL (8.5-10.1); Chloride 100 mmol/L (98-107); Estimated GFR 66.53 (mL/min/1.73m2); Glucose 89 mg/dL (74-106); Potassium 4.1 mmol/L (3.5-5.1); Sodium 133 mmol/L (136-145); Total Protein 7.4 g/dL (6.4-8.2)
[2023-07-31 17:42] LABS: Cancer Ag 15-3 18 U/mL (<30)
== END 2023-07-30 02:40 | disposition home or self-care (01) ==
PROVIDERS: PCP Nurse Practitioner Family; Visit Provider Nurse Practitioner Adult Health
DX: C50.412 Malignant neoplasm of upper-outer quadrant of left female breast (principal); C79.51 Secondary malignant neoplasm of bone
CPT/HCPCS: 36415; 80053; 86304; 85025; 86300

== ENCOUNTER 2023-08-27 02:43 | Outpatient (CLI) | payer BC, SELFPAY ==
[2023-08-27 09:29] LABS: Abs Immature Grans 0.01 10^3/uL (0.0-0.06); Absolute Basophil Count 0.04 10^3/uL (0.0-0.2); Absolute Eosinophil Count 0.09 10^3/uL (0.0-0.7); Absolute Lymphocyte Count 0.73 10^3/uL (1.2-3.4); Absolute Monocyte Count 0.18 10^3/uL (0.1-0.8); Absolute Neutrophil Count 1.26 10^3/uL (1.2-6.7); Basophils % 1.7; Eosinophils % 3.9; HCT 33.2 % (36.0-46.0); HGB 11.8 g/dL (11.2-15.7); Immature Grans % 0.4; Lymphocytes % 31.6; MCH 38.8 pg (27.0-33.0); MCHC 35.5 % (32.0-36.0); MPV 9.1 fL (8.0-11.0); Monocytes % 7.8; Neutrophils % 54.6; Platelet Count 219 10^3/uL (130-400); RBC 3.04 10^6/uL (3.93-5.22); RDW 13.9 % (11.7-14.6); RDW-SD 56.6 fL; WBC 2.31 10^3/uL (4.4-10.8)
[2023-08-27 09:36] LABS: MCV 109 fL (80-95)
[2023-08-27 09:41] LABS: Diff Comment RBC Morph Reviewed; Macrocytosis 1+
[2023-08-27 09:45] LABS: ALT 16 U/L (14-59); AST 17 U/L (15-37); Alkaline Phosphatase 68 U/L (46-116); Anion Gap 9.3 mmol/L (3-11); BUN 7 mg/dL (7-18); Bilirubin, Total 0.5 mg/dL (0.2-1.0); CO2 25.7 mmol/L (21.0-32.0); CREATININE 0.8 mg/dL (0.55-1.02); Calcium 9.2 mg/dL (8.5-10.1); Chloride 100 mmol/L (98-107); Estimated GFR 86.96 (mL/min/1.73m2); Glucose 94 mg/dL (74-106); Potassium 4.1 mmol/L (3.5-5.1); Sodium 135 mmol/L (136-145); Total Protein 7.6 g/dL (6.4-8.2)
[2023-08-29 11:10] LABS: Cancer Ag 15-3 18 U/mL (<30)
== END 2023-08-27 02:44 | disposition home or self-care (01) ==
LOC: LBO 02:43
PROVIDERS: PCP Nurse Practitioner Family; Visit Provider Internal Medicine
DX: C50.912 Malignant neoplasm of unspecified site of left female breast (principal); Z17.0 Estrogen receptor positive status [ER+]
CPT/HCPCS: 36415; 80053; 86304; 85025; 86300

== ENCOUNTER 2023-09-24 02:50 | Outpatient (CLI) | payer BC, SELFPAY ==
[2023-09-24 08:54] LABS: Abs Immature Grans 0.01 10^3/uL (0.0-0.06); Absolute Basophil Count 0.04 10^3/uL (0.0-0.2); Absolute Eosinophil Count 0.19 10^3/uL (0.0-0.7); Absolute Lymphocyte Count 0.81 10^3/uL (1.2-3.4); Absolute Monocyte Count 0.21 10^3/uL (0.1-0.8); Absolute Neutrophil Count 1.52 10^3/uL (1.2-6.7); Basophils % 1.4; Eosinophils % 6.8; HGB 12.6 g/dL (11.2-15.7); Immature Grans % 0.4; Lymphocytes % 29.1; MCH 38.7 pg (27.0-33.0); MPV 9.7 fL (8.0-11.0); Monocytes % 7.6; Neutrophils % 54.7; Platelet Count 236 10^3/uL (130-400); RBC 3.26 10^6/uL (3.93-5.22); RDW 13.2 % (11.7-14.6); RDW-SD 54.4 fL; WBC 2.78 10^3/uL (4.4-10.8)
[2023-09-24 08:57] LABS: MCV 110 fL (80-95)
[2023-09-24 09:10] LABS: ALT 15 U/L (14-59); AST 14 U/L (15-37); Albumin 3.8 g/dL (3.4-5.0); Alkaline Phosphatase 69 U/L (46-116); BUN 10 mg/dL (7-18); Bilirubin, Total 0.4 mg/dL (0.2-1.0); CREATININE 0.9 mg/dL (0.55-1.02); Calcium 9.4 mg/dL (8.5-10.1); Chloride 100 mmol/L (98-107); Estimated GFR 75.03 (mL/min/1.73m2); Glucose 106 mg/dL (74-106); Potassium 4.1 mmol/L (3.5-5.1); Sodium 135 mmol/L (136-145); Total Protein 7.7 g/dL (6.4-8.2)
[2023-09-25 16:47] LABS: Cancer Ag 15-3 20 U/mL (<30)
== END 2023-09-24 02:51 | disposition home or self-care (01) ==
LOC: LBO 02:50
PROVIDERS: PCP Nurse Practitioner Family; Visit Provider Internal Medicine
DX: C50.912 Malignant neoplasm of unspecified site of left female breast (principal); C79.51 Secondary malignant neoplasm of bone
CPT/HCPCS: 36415; 80053; 86304; 85025; 86300

== ENCOUNTER 2023-10-22 03:09 | Outpatient (CLI) | payer BC, SELFPAY ==
[2023-10-22 08:58] LABS: Abs Immature Grans 0.01 10^3/uL (0.0-0.06); Absolute Basophil Count 0.04 10^3/uL (0.0-0.2); Absolute Eosinophil Count 0.15 10^3/uL (0.0-0.7); Absolute Lymphocyte Count 0.75 10^3/uL (1.2-3.4); Absolute Monocyte Count 0.24 10^3/uL (0.1-0.8); Absolute Neutrophil Count 1.55 10^3/uL (1.2-6.7); Basophils % 1.5; Eosinophils % 5.5; HCT 35.9 % (36.0-46.0); HGB 12.8 g/dL (11.2-15.7); Immature Grans % 0.4; Lymphocytes % 27.4; MCH 37.8 pg (27.0-33.0); MCHC 35.7 % (32.0-36.0); MPV 9.3 fL (8.0-11.0); Monocytes % 8.8; Neutrophils % 56.4; Platelet Count 231 10^3/uL (130-400); RBC 3.39 10^6/uL (3.93-5.22); RDW 12.3 % (11.7-14.6); RDW-SD 47.9 fL; WBC 2.74 10^3/uL (4.4-10.8)
[2023-10-22 09:09] LABS: MCV 106 fL (80-95)
[2023-10-22 09:15] LABS: ALT 16 U/L (14-59); AST 14 U/L (15-37); Albumin 3.9 g/dL (3.4-5.0); Alkaline Phosphatase 67 U/L (46-116); BUN 11 mg/dL (7-18); Bilirubin, Total 0.5 mg/dL (0.2-1.0); CREATININE 0.9 mg/dL (0.55-1.02); Calcium 9.8 mg/dL (8.5-10.1); Chloride 99 mmol/L (98-107); Estimated GFR 75.03 (mL/min/1.73m2); Glucose 104 mg/dL (74-106); Potassium 4.2 mmol/L (3.5-5.1); Sodium 132 mmol/L (136-145)
[2023-10-22 09:27] LABS: TSH (W/Ref FT4) 14.72 uIU/mL (0.36-3.74)
[2023-10-22 09:43] LABS: FREE T4 1.12 ng/dL (0.76-1.46)
[2023-10-25 19:40] LABS: Cancer Ag 15-3 15 U/mL (<30)
== END 2023-10-22 03:10 | disposition home or self-care (01) ==
LOC: LBO 03:09
PROVIDERS: Nurse Practitioner Adult Health; PCP Nurse Practitioner Family; Visit Provider Internal Medicine
DX: E03.9 Hypothyroidism, unspecified (principal)
CPT/HCPCS: 36415; 80053; 86304; 84439; 84443; 85025; 86300

== ENCOUNTER 2023-11-19 02:43 | Outpatient (CLI) | payer BC, SELFPAY ==
[2023-11-19 09:17] LABS: Abs Immature Grans 0.02 10^3/uL (0.0-0.06); Absolute Basophil Count 0.03 10^3/uL (0.0-0.2); Absolute Eosinophil Count 0.17 10^3/uL (0.0-0.7); Absolute Lymphocyte Count 0.72 10^3/uL (1.2-3.4); Absolute Monocyte Count 0.25 10^3/uL (0.1-0.8); Absolute Neutrophil Count 1.59 10^3/uL (1.2-6.7); Basophils % 1.1; Eosinophils % 6.1; HCT 35.1 % (36.0-46.0); HGB 12.5 g/dL (11.2-15.7); Immature Grans % 0.7; Lymphocytes % 25.9; MCH 37.7 pg (27.0-33.0); MCHC 35.6 % (32.0-36.0); MPV 9.2 fL (8.0-11.0); Neutrophils % 57.2; Platelet Count 230 10^3/uL (130-400); RBC 3.32 10^6/uL (3.93-5.22); RDW 12.4 % (11.7-14.6); RDW-SD 48.7 fL; WBC 2.78 10^3/uL (4.4-10.8)
[2023-11-19 09:18] LABS: MCV 106 fL (80-95)
[2023-11-19 09:34] LABS: ALT 16 U/L (14-59); AST 12 U/L (15-37); Albumin 3.7 g/dL (3.4-5.0); Alkaline Phosphatase 60 U/L (46-116); Anion Gap 7.4 mmol/L (3-11); BUN 10 mg/dL (7-18); Bilirubin, Total 0.5 mg/dL (0.2-1.0); CO2 26.6 mmol/L (21.0-32.0); CREATININE 0.8 mg/dL (0.55-1.02); Chloride 98 mmol/L (98-107); Estimated GFR 86.42 (mL/min/1.73m2); Glucose 94 mg/dL (74-106); Potassium 4.4 mmol/L (3.5-5.1); Sodium 132 mmol/L (136-145); Total Protein 7.5 g/dL (6.4-8.2)
[2023-11-20 17:44] LABS: Cancer Ag 15-3 18 U/mL (<30)
== END 2023-11-19 02:44 | disposition home or self-care (01) ==
PROVIDERS: PCP Nurse Practitioner Family; Visit Provider Nurse Practitioner
DX: C50.912 Malignant neoplasm of unspecified site of left female breast (principal); Z17.0 Estrogen receptor positive status [ER+]
CPT/HCPCS: 36415; 80053; 86304; 85025; 86300

== ENCOUNTER 2023-12-17 04:49 | Outpatient (CLI) | payer BC, SELFPAY ==
[2023-12-17 09:07] LABS: Abs Immature Grans 0.01 10^3/uL (0.0-0.06); Absolute Basophil Count 0.04 10^3/uL (0.0-0.2); Absolute Eosinophil Count 0.12 10^3/uL (0.0-0.7); Absolute Lymphocyte Count 0.66 10^3/uL (1.2-3.4); Basophils % 1.7; Eosinophils % 5.2; HCT 35.3 % (36.0-46.0); HGB 12.4 g/dL (11.2-15.7); Immature Grans % 0.4; Lymphocytes % 28.3; MCH 36.8 pg (27.0-33.0); MCHC 35.1 % (32.0-36.0); MCV 105 fL (80-95); MPV 9.3 fL (8.0-11.0); Monocytes % 8.6; Neutrophils % 55.8; Platelet Count 238 10^3/uL (130-400); RBC 3.37 10^6/uL (3.93-5.22); RDW 13.2 % (11.7-14.6); RDW-SD 51.1 fL; WBC 2.33 10^3/uL (4.4-10.8)
[2023-12-17 09:23] LABS: ALT 17 U/L (14-59); AST 13 U/L (15-37); Albumin 3.8 g/dL (3.4-5.0); Alkaline Phosphatase 63 U/L (46-116); BUN 10 mg/dL (7-18); Bilirubin, Total 0.5 mg/dL (0.2-1.0); CREATININE 0.8 mg/dL (0.55-1.02); Calcium 9.1 mg/dL (8.5-10.1); Chloride 100 mmol/L (98-107); Estimated GFR 86.42 (mL/min/1.73m2); Glucose 105 mg/dL (74-106); Potassium 4.2 mmol/L (3.5-5.1); Sodium 133 mmol/L (136-145); Total Protein 7.5 g/dL (6.4-8.2)
[2023-12-18 17:52] LABS: Cancer Ag 15-3 19 U/mL (<30)
== END 2023-12-17 04:50 | disposition home or self-care (01) ==
PROVIDERS: PCP Nurse Practitioner Family; Visit Provider Nurse Practitioner
DX: C50.912 Malignant neoplasm of unspecified site of left female breast (principal); Z17.0 Estrogen receptor positive status [ER+]
CPT/HCPCS: 36415; 80053; 86300; 85025

== ENCOUNTER 2024-01-14 03:13 | Outpatient (CLI) | payer BC, SELFPAY ==
[2024-01-14 08:24] LABS: Absolute Basophil Count 0.03 10^3/uL (0.0-0.2); Absolute Eosinophil Count 0.11 10^3/uL (0.0-0.7); Absolute Monocyte Count 0.21 10^3/uL (0.1-0.8); Absolute Neutrophil Count 1.26 10^3/uL (1.2-6.7); Basophils % 1.3; Eosinophils % 4.8; HCT 36.7 % (36.0-46.0); HGB 12.9 g/dL (11.2-15.7); Lymphocytes % 30.3; MCH 37.1 pg (27.0-33.0); MCHC 35.1 % (32.0-36.0); MPV 9.2 fL (8.0-11.0); Monocytes % 9.1; Neutrophils % 54.5; Platelet Count 225 10^3/uL (130-400); RBC 3.48 10^6/uL (3.93-5.22); RDW 13.5 % (11.7-14.6); WBC 2.31 10^3/uL (4.4-10.8)
[2024-01-14 08:26] LABS: MCV 106 fL (80-95)
[2024-01-14 08:42] LABS: ALT 19 U/L (14-59); AST 13 U/L (15-37); Albumin 3.8 g/dL (3.4-5.0); Alkaline Phosphatase 60 U/L (46-116); Anion Gap 10.8 mmol/L (3-11); BUN 9 mg/dL (7-18); Bilirubin, Total 0.5 mg/dL (0.2-1.0); CO2 27.2 mmol/L (21.0-32.0); CREATININE 0.9 mg/dL (0.55-1.02); Calcium 9.5 mg/dL (8.5-10.1); Chloride 100 mmol/L (98-107); Estimated GFR 75.03 (mL/min/1.73m2); Glucose 98 mg/dL (74-106); Sodium 138 mmol/L (136-145); Total Protein 7.6 g/dL (6.4-8.2)
[2024-01-16 12:06] LABS: Cancer Ag 15-3 17 U/mL (<30)
== END 2024-01-14 03:14 | disposition home or self-care (01) ==
PROVIDERS: PCP Nurse Practitioner Family; Visit Provider Nurse Practitioner
DX: C50.912 Malignant neoplasm of unspecified site of left female breast (principal); Z17.0 Estrogen receptor positive status [ER+]
CPT/HCPCS: 36415; 80053; 86300; 85025

== ENCOUNTER 2024-01-31 10:45 | Outpatient (CLI) | payer BC, SELFPAY ==
[2024-01-31 10:10] LABS: Abs Immature Grans 0.02 10^3/uL (0.0-0.06); Absolute Basophil Count 0.05 10^3/uL (0.0-0.2); Absolute Lymphocyte Count 1.11 10^3/uL (1.2-3.4); Absolute Neutrophil Count 2.36 10^3/uL (1.2-6.7); Basophils % 1.1; Eosinophils % 2.3; HCT 37.5 % (36.0-46.0); HGB 13.1 g/dL (11.2-15.7); Immature Grans % 0.5; MCH 36.7 pg (27.0-33.0); MCHC 34.9 % (32.0-36.0); MCV 105 fL (80-95); MPV 9.5 fL (8.0-11.0); Neutrophils % 53.1; Platelet Count 196 10^3/uL (130-400); RBC 3.57 10^6/uL (3.93-5.22); RDW 13.9 % (11.7-14.6); RDW-SD 54.5 fL; WBC 4.44 10^3/uL (4.4-10.8)
[2024-01-31 10:26] LABS: ALT 18 U/L (14-59); AST 16 U/L (15-37); Alkaline Phosphatase 74 U/L (46-116); Anion Gap 11.6 mmol/L (3-11); BUN 9 mg/dL (7-18); Bilirubin, Total 0.4 mg/dL (0.2-1.0); CO2 24.4 mmol/L (21.0-32.0); CREATININE 0.8 mg/dL (0.55-1.02); Calcium 9.5 mg/dL (8.5-10.1); Chloride 101 mmol/L (98-107); Estimated GFR 86.42 (mL/min/1.73m2); Glucose 107 mg/dL (74-106); Sodium 137 mmol/L (136-145); Total Protein 7.9 g/dL (6.4-8.2)
== END 2024-01-31 10:46 | disposition home or self-care (01) ==
LOC: LBO 10:46
PROVIDERS: PCP Nurse Practitioner Family; Visit Provider Nurse Practitioner
DX: C50.912 Malignant neoplasm of unspecified site of left female breast (principal); Z17.0 Estrogen receptor positive status [ER+]
CPT/HCPCS: 36415; 80053; 85025

== ENCOUNTER 2024-02-11 04:13 | Outpatient (CLI) | payer BC, SELFPAY ==
[2024-02-11 08:41] LABS: Abs Immature Grans 0.01 10^3/uL (0.0-0.06); Absolute Basophil Count 0.05 10^3/uL (0.0-0.2); Absolute Eosinophil Count 0.15 10^3/uL (0.0-0.7); Absolute Lymphocyte Count 0.77 10^3/uL (1.2-3.4); Absolute Monocyte Count 0.22 10^3/uL (0.1-0.8); Basophils % 1.7; HCT 34.5 % (36.0-46.0); Immature Grans % 0.3; Lymphocytes % 25.7; MCH 36.1 pg (27.0-33.0); MCHC 34.8 % (32.0-36.0); MCV 104 fL (80-95); MPV 9.1 fL (8.0-11.0); Monocytes % 7.3; Platelet Count 250 10^3/uL (130-400); RBC 3.32 10^6/uL (3.93-5.22); RDW 13.8 % (11.7-14.6)
[2024-02-11 09:00] LABS: ALT 14 U/L (14-59); AST 11 U/L (15-37); Albumin 3.5 g/dL (3.4-5.0); Alkaline Phosphatase 70 U/L (46-116); Anion Gap 10.4 mmol/L (3-11); BUN 12 mg/dL (7-18); Bilirubin, Total 0.4 mg/dL (0.2-1.0); CO2 25.6 mmol/L (21.0-32.0); Calcium 9.1 mg/dL (8.5-10.1); Chloride 103 mmol/L (98-107); Estimated GFR 66.12 (mL/min/1.73m2); Glucose 103 mg/dL (74-106); Potassium 3.6 mmol/L (3.5-5.1); Sodium 139 mmol/L (136-145); Total Protein 7.3 g/dL (6.4-8.2)
[2024-02-12 17:24] LABS: Cancer Ag 15-3 17 U/mL (<30)
== END 2024-02-11 04:14 | disposition home or self-care (01) ==
PROVIDERS: PCP Nurse Practitioner Adult Health; Visit Provider Nurse Practitioner
DX: C50.412 Malignant neoplasm of upper-outer quadrant of left female breast (principal); Z17.0 Estrogen receptor positive status [ER+]
CPT/HCPCS: 36415; 80053; 86300; 85025

== ENCOUNTER 2024-04-07 05:37 | Outpatient (CLI) | payer BC, SELFPAY ==
[2024-04-07 12:12] LABS: Abs Immature Grans 0.02 10^3/uL (0.0-0.06); Absolute Basophil Count 0.04 10^3/uL (0.0-0.2); Absolute Lymphocyte Count 0.75 10^3/uL (1.2-3.4); Absolute Monocyte Count 0.24 10^3/uL (0.1-0.8); Absolute Neutrophil Count 2.34 10^3/uL (1.2-6.7); Basophils % 1.1 %; Eosinophils % 2.9 %; HCT 35.7 % (36.0-46.0); HGB 12.4 g/dL (11.2-15.7); Immature Grans % 0.6 %; Lymphocytes % 21.5 %; MCH 37.5 pg (27.0-33.0); MCHC 34.7 % (32.0-36.0); MCV 108 fL (80-95); MPV 9.4 fL (8.0-11.0); Monocytes % 6.9 %; Platelet Count 222 10^3/uL (130-400); RBC 3.31 10^6/uL (3.93-5.22); RDW 13.9 % (11.7-14.6); RDW-SD 55.6 fL; WBC 3.49 10^3/uL (4.4-10.8)
[2024-04-07 12:22] LABS: Diff Comment RBC Morph Reviewed
[2024-04-07 12:23] LABS: Macrocytosis 1+
[2024-04-07 12:29] LABS: ALT 17 U/L (14-59); AST 10 U/L (15-37); Albumin 3.8 g/dL (3.4-5.0); Alkaline Phosphatase 62 U/L (46-116); Anion Gap 10.7 mmol/L (3-11); BUN 10 mg/dL (7-18); Bilirubin, Total 0.3 mg/dL (0.2-1.0); CO2 26.3 mmol/L (21.0-32.0); CREATININE 0.8 mg/dL (0.55-1.02); Calcium 9.2 mg/dL (8.5-10.1); Chloride 102 mmol/L (98-107); Estimated GFR 86.42 (mL/min/1.73m2); Glucose 96 mg/dL (74-106); Sodium 139 mmol/L (136-145); Total Protein 7.3 g/dL (6.4-8.2)
[2024-04-09 11:03] LABS: Cancer Ag 15-3 20 U/mL (<30)
== END 2024-04-07 05:38 | disposition home or self-care (01) ==
LOC: LBO 05:37
PROVIDERS: PCP Nurse Practitioner Adult Health; Visit Provider Nurse Practitioner
DX: C50.912 Malignant neoplasm of unspecified site of left female breast (principal); Z17.0 Estrogen receptor positive status [ER+]
CPT/HCPCS: 36415; 80053; 86300; 85025

== ENCOUNTER 2024-05-05 04:50 | Outpatient (CLI) | payer BC, SELFPAY ==
[2024-05-05 09:03] LABS: Abs Immature Grans 0.01 10^3/uL (0.0-0.06); Absolute Basophil Count 0.03 10^3/uL (0.0-0.2); Absolute Eosinophil Count 0.08 10^3/uL (0.0-0.7); Absolute Monocyte Count 0.23 10^3/uL (0.1-0.8); Absolute Neutrophil Count 1.11 10^3/uL (1.2-6.7); Basophils % 1.5 %; Eosinophils % 4.1 %; HCT 35.8 % (36.0-46.0); HGB 12.8 g/dL (11.2-15.7); Immature Grans % 0.5 %; Lymphocytes % 25.5 %; MCH 38.3 pg (27.0-33.0); MCHC 35.8 % (32.0-36.0); MPV 9.3 fL (8.0-11.0); Monocytes % 11.7 %; Neutrophils % 56.7 %; Platelet Count 212 10^3/uL (130-400); RBC 3.34 10^6/uL (3.93-5.22); RDW-SD 51.4 fL
[2024-05-05 09:05] LABS: MCV 107 fL (80-95)
[2024-05-05 09:14] LABS: Diff Comment Diff Reviewed; RBC Morphology Normal
[2024-05-05 09:16] LABS: WBC 1.96 10^3/uL (4.4-10.8)
[2024-05-05 09:19] LABS: ALT 19 U/L (14-59); AST 12 U/L (15-37); Albumin 3.7 g/dL (3.4-5.0); Alkaline Phosphatase 69 U/L (46-116); Anion Gap 9.4 mmol/L (3-11); BUN 8 mg/dL (7-18); Bilirubin, Total 0.5 mg/dL (0.2-1.0); CO2 26.6 mmol/L (21.0-32.0); CREATININE 0.8 mg/dL (0.55-1.02); Calcium 8.9 mg/dL (8.5-10.1); Chloride 102 mmol/L (98-107); Estimated GFR 86.42 (mL/min/1.73m2); Glucose 95 mg/dL (74-106); Potassium 4.2 mmol/L (3.5-5.1); Sodium 138 mmol/L (136-145); Total Protein 7.4 g/dL (6.4-8.2)
[2024-05-07 15:44] LABS: Cancer Ag 15-3 19 U/mL (<30)
== END 2024-05-05 04:51 | disposition home or self-care (01) ==
PROVIDERS: PCP Nurse Practitioner Adult Health; Visit Provider Nurse Practitioner
DX: C50.912 Malignant neoplasm of unspecified site of left female breast (principal); Z17.0 Estrogen receptor positive status [ER+]
CPT/HCPCS: 36415; 80053; 86300; 85025

== ENCOUNTER 2024-05-19 04:57 | Outpatient (CLI) | payer BC, SELFPAY ==
[2024-05-19 10:47] LABS: Absolute Eosinophil Count 0.04 10^3/uL (0.0-0.7); HCT 35.3 % (36.0-46.0); HGB 12.5 g/dL (11.2-15.7); MCH 38.7 pg (27.0-33.0); MCHC 35.4 % (32.0-36.0); MCV 109 fL (80-95); MPV 9.4 fL (8.0-11.0); Platelet Count 159 10^3/uL (130-400); RBC 3.23 10^6/uL (3.93-5.22); RDW 13.2 % (11.7-14.6); RDW-SD 53.3 fL
[2024-05-19 11:01] LABS: ALT 19 U/L (14-59); AST 16 U/L (15-37); Albumin 3.7 g/dL (3.4-5.0); Alkaline Phosphatase 66 U/L (46-116); Anion Gap 9.8 mmol/L (3-11); BUN 6 mg/dL (7-18); Bilirubin, Total 0.5 mg/dL (0.2-1.0); CO2 25.2 mmol/L (21.0-32.0); CREATININE 0.7 mg/dL (0.55-1.02); Calcium 8.9 mg/dL (8.5-10.1); Chloride 100 mmol/L (98-107); Estimated GFR 101.44 (mL/min/1.73m2); Glucose 95 mg/dL (74-106); Potassium 4.2 mmol/L (3.5-5.1); Sodium 135 mmol/L (136-145); Total Protein 7.3 g/dL (6.4-8.2)
[2024-05-19 11:22] LABS: Absolute Lymphocyte Count 0.59 10^3/uL (1.2-3.4); Absolute Monocyte Count 0.18 10^3/uL (0.1-0.8); Absolute Neutrophil Count 1.15 10^3/uL (1.2-6.7); Atypical Lymphocytes % 4 %
[2024-05-19 11:23] LABS: Diff Comment Manual Differential; Macrocytosis 2+
[2024-05-19 11:29] LABS: WBC 1.95 10^3/uL (4.4-10.8)
[2024-05-21 13:56] LABS: Cancer Ag 15-3 18 U/mL (<30)
== END 2024-05-19 04:58 | disposition home or self-care (01) ==
PROVIDERS: Internal Medicine; PCP Nurse Practitioner Adult Health; Visit Provider Nurse Practitioner
DX: C50.912 Malignant neoplasm of unspecified site of left female breast (principal); Z17.0 Estrogen receptor positive status [ER+]
CPT/HCPCS: 36415; 80053; 86300; 85025

== ENCOUNTER 2024-06-02 02:50 | Outpatient (CLI) | payer BC, SELFPAY ==
[2024-06-02 08:55] LABS: HCT 34.7 % (36.0-46.0); HGB 12.1 g/dL (11.2-15.7); MCH 38.1 pg (27.0-33.0); MCHC 34.9 % (32.0-36.0); MCV 109 fL (80-95); MPV 9.7 fL (8.0-11.0); Platelet Count 212 10^3/uL (130-400); RBC 3.18 10^6/uL (3.93-5.22); RDW 13.2 % (11.7-14.6); WBC 2.04 10^3/uL (4.4-10.8)
[2024-06-02 09:00] LABS: ALT 20 U/L (14-59); AST 15 U/L (15-37); Albumin 3.6 g/dL (3.4-5.0); Alkaline Phosphatase 61 U/L (46-116); Anion Gap 9.6 mmol/L (3-11); BUN 10 mg/dL (7-18); Bilirubin, Total 0.48 mg/dL (0.2-1.0); CO2 26.4 mmol/L (21.0-32.0); CREATININE 0.8 mg/dL (0.55-1.02); Calcium 8.9 mg/dL (8.5-10.1); Chloride 101 mmol/L (98-107); Estimated GFR 86.42 (mL/min/1.73m2); Glucose 99 mg/dL (74-106); Potassium 3.9 mmol/L (3.5-5.1); Sodium 137 mmol/L (136-145); Total Protein 7.1 g/dL (6.4-8.2)
[2024-06-02 09:11] LABS: Absolute Basophil Count 0.06 10^3/uL (0.0-0.2); Absolute Lymphocyte Count 0.71 10^3/uL (1.2-3.4); Absolute Monocyte Count 0.14 10^3/uL (0.1-0.8); Absolute Neutrophil Count 0.92 10^3/uL (1.2-6.7); Atypical Lymphocytes % 6 %; Diff Comment Manual Differential; Macrocytosis 2+
[2024-06-05 10:45] LABS: Cancer Ag 15-3 16 U/mL (<30)
== END 2024-06-02 02:51 | disposition home or self-care (01) ==
LOC: LBO 02:50
PROVIDERS: PCP Nurse Practitioner Adult Health; Visit Provider Nurse Practitioner
DX: C50.912 Malignant neoplasm of unspecified site of left female breast (principal); Z17.0 Estrogen receptor positive status [ER+]
CPT/HCPCS: 36415; 80053; 86300; 85025

== ENCOUNTER 2024-06-15 03:44 | Outpatient (CLI) | payer BC, SELFPAY ==
[2024-06-15 09:27] LABS: Abs Immature Grans 0.01 10^3/uL (0.0-0.06); HCT 36.1 % (36.0-46.0); HGB 12.8 g/dL (11.2-15.7); MCH 38.7 pg (27.0-33.0); MCHC 35.5 % (32.0-36.0); MCV 109 fL (80-95); MPV 9.9 fL (8.0-11.0); Platelet Count 190 10^3/uL (130-400); RBC 3.31 10^6/uL (3.93-5.22); RDW 13.2 % (11.7-14.6); RDW-SD 53.5 fL; WBC 2.07 10^3/uL (4.4-10.8)
[2024-06-15 09:59] LABS: ALT 25 U/L (14-59); AST 16 U/L (15-37); Albumin 3.9 g/dL (3.4-5.0); Alkaline Phosphatase 72 U/L (46-116); Anion Gap 12.5 mmol/L (3-11); BUN 13 mg/dL (7-18); Bilirubin, Total 0.58 mg/dL (0.2-1.0); CO2 23.5 mmol/L (21.0-32.0); CREATININE 0.8 mg/dL (0.55-1.02); Calcium 9.2 mg/dL (8.5-10.1); Chloride 101 mmol/L (98-107); Estimated GFR 86.42 (mL/min/1.73m2); Glucose 94 mg/dL (74-106); Sodium 137 mmol/L (136-145); Total Protein 7.6 g/dL (6.4-8.2)
[2024-06-15 10:12] LABS: Absolute Eosinophil Count 0.08 10^3/uL (0.0-0.7); Absolute Lymphocyte Count 0.68 10^3/uL (1.2-3.4); Absolute Monocyte Count 0.25 10^3/uL (0.1-0.8); Absolute Neutrophil Count 1.06 10^3/uL (1.2-6.7); Atypical Lymphocytes % 6 %; Bands % 1 %
[2024-06-15 10:13] LABS: Diff Comment Manual Differential
[2024-06-15 11:29] LABS: Macrocytosis 1+
[2024-06-16 17:02] LABS: Cancer Ag 15-3 19 U/mL (<30)
== END 2024-06-15 03:45 | disposition home or self-care (01) ==
PROVIDERS: PCP Nurse Practitioner Adult Health; Visit Provider Nurse Practitioner
DX: C50.912 Malignant neoplasm of unspecified site of left female breast (principal); Z17.0 Estrogen receptor positive status [ER+]
CPT/HCPCS: 36415; 80053; 86300; 85025

== ENCOUNTER 2024-06-30 03:52 | Outpatient (CLI) | payer BC, SELFPAY ==
[2024-06-30 08:08] LABS: Absolute Eosinophil Count 0.09 10^3/uL (0.0-0.7); HCT 35.3 % (36.0-46.0); HGB 12.4 g/dL (11.2-15.7); MCH 38.6 pg (27.0-33.0); MCHC 35.1 % (32.0-36.0); MCV 110 fL (80-95); MPV 9.4 fL (8.0-11.0); Platelet Count 204 10^3/uL (130-400); RBC 3.21 10^6/uL (3.93-5.22); RDW 12.9 % (11.7-14.6); RDW-SD 51.7 fL; WBC 2.22 10^3/uL (4.4-10.8)
[2024-06-30 08:27] LABS: ALT 21 U/L (14-59); AST 17 U/L (15-37); Albumin 3.7 g/dL (3.4-5.0); Alkaline Phosphatase 66 U/L (46-116); Anion Gap 9.9 mmol/L (3-11); BUN 11 mg/dL (7-18); Bilirubin, Total 0.53 mg/dL (0.2-1.0); CO2 25.1 mmol/L (21.0-32.0); CREATININE 0.8 mg/dL (0.55-1.02); Chloride 99 mmol/L (98-107); Estimated GFR 86.42 (mL/min/1.73m2); Glucose 102 mg/dL (74-106); Potassium 3.9 mmol/L (3.5-5.1); Sodium 134 mmol/L (136-145); Total Protein 7.2 g/dL (6.4-8.2)
[2024-06-30 08:58] LABS: Absolute Lymphocyte Count 0.56 10^3/uL (1.2-3.4); Atypical Lymphocytes % 3 %
[2024-06-30 08:59] LABS: Absolute Basophil Count 0.04 10^3/uL (0.0-0.2); Absolute Monocyte Count 0.13 10^3/uL (0.1-0.8); Diff Comment Manual Differential; Macrocytosis 2+
[2024-07-01 18:25] LABS: Cancer Ag 15-3 19 U/mL (<30)
== END 2024-06-30 03:53 | disposition home or self-care (01) ==
PROVIDERS: PCP Nurse Practitioner Adult Health; Visit Provider Nurse Practitioner
DX: C50.912 Malignant neoplasm of unspecified site of left female breast (principal); Z17.0 Estrogen receptor positive status [ER+]
CPT/HCPCS: 36415; 80053; 86300; 85025

== ENCOUNTER 2024-07-28 03:02 | Outpatient (CLI) | payer BC, SELFPAY ==
[2024-07-28 08:06] LABS: Abs Immature Grans 0.01 10^3/uL (0.0-0.06); Absolute Basophil Count 0.03 10^3/uL (0.0-0.2); Absolute Eosinophil Count 0.11 10^3/uL (0.0-0.7); Absolute Lymphocyte Count 0.65 10^3/uL (1.2-3.4); Absolute Monocyte Count 0.22 10^3/uL (0.1-0.8); Absolute Neutrophil Count 1.47 10^3/uL (1.2-6.7); Basophils % 1.2 %; Eosinophils % 4.4 %; HGB 12.5 g/dL (11.2-15.7); Immature Grans % 0.4 %; Lymphocytes % 26.1 %; MCH 38.7 pg (27.0-33.0); MCHC 35.7 % (32.0-36.0); MCV 108 fL (80-95); MPV 9.4 fL (8.0-11.0); Monocytes % 8.8 %; Neutrophils % 59.1 %; Platelet Count 216 10^3/uL (130-400); RBC 3.23 10^6/uL (3.93-5.22); RDW 12.6 % (11.7-14.6); RDW-SD 50.4 fL; WBC 2.49 10^3/uL (4.4-10.8)
[2024-07-28 08:24] LABS: ALT 20 U/L (14-59); AST 16 U/L (15-37); Albumin 3.7 g/dL (3.4-5.0); Alkaline Phosphatase 72 U/L (46-116); Anion Gap 8.2 mmol/L (3-11); BUN 9 mg/dL (7-18); Bilirubin, Total 0.54 mg/dL (0.2-1.0); CO2 26.8 mmol/L (21.0-32.0); CREATININE 0.8 mg/dL (0.55-1.02); Calcium 9.2 mg/dL (8.5-10.1); Chloride 99 mmol/L (98-107); Estimated GFR 86.42 (mL/min/1.73m2); Glucose 99 mg/dL (74-106); Potassium 4.4 mmol/L (3.5-5.1); Sodium 134 mmol/L (136-145); Total Protein 7.2 g/dL (6.4-8.2)
[2024-07-28 08:26] LABS: Diff Comment Agrees w/ Instrument; Macrocytosis 2+
[2024-07-29 17:46] LABS: Cancer Ag 15-3 18 U/mL (<30)
== END 2024-07-28 03:03 | disposition home or self-care (01) ==
PROVIDERS: PCP Nurse Practitioner Adult Health; Visit Provider Nurse Practitioner
DX: C50.912 Malignant neoplasm of unspecified site of left female breast (principal); Z17.0 Estrogen receptor positive status [ER+]
CPT/HCPCS: 36415; 80053; 86300; 85025

== ENCOUNTER 2024-08-25 02:27 | Outpatient (CLI) | payer BC, SELFPAY ==
[2024-08-25 08:22] LABS: Abs Immature Grans 0.01 10^3/uL (0.0-0.06); Absolute Basophil Count 0.04 10^3/uL (0.0-0.2); Absolute Lymphocyte Count 0.76 10^3/uL (1.2-3.4); Absolute Monocyte Count 0.26 10^3/uL (0.1-0.8); Absolute Neutrophil Count 1.38 10^3/uL (1.2-6.7); Basophils % 1.6 %; Eosinophils % 3.9 %; HCT 37.8 % (36.0-46.0); HGB 13.3 g/dL (11.2-15.7); Immature Grans % 0.4 %; Lymphocytes % 29.8 %; MCH 38.2 pg (27.0-33.0); MCHC 35.2 % (32.0-36.0); MCV 109 fL (80-95); MPV 9.3 fL (8.0-11.0); Monocytes % 10.2 %; Neutrophils % 54.1 %; Platelet Count 229 10^3/uL (130-400); RBC 3.48 10^6/uL (3.93-5.22); RDW 12.7 % (11.7-14.6); WBC 2.55 10^3/uL (4.4-10.8)
[2024-08-25 08:31] LABS: ALT 18 U/L (14-59); AST 15 U/L (15-37); Albumin 3.9 g/dL (3.4-5.0); Alkaline Phosphatase 71 U/L (46-116); BUN 7 mg/dL (7-18); Bilirubin, Total 0.62 mg/dL (0.2-1.0); CREATININE 0.9 mg/dL (0.55-1.02); Calcium 9.5 mg/dL (8.5-10.1); Chloride 98 mmol/L (98-107); Estimated GFR 75.03 (mL/min/1.73m2); Glucose 105 mg/dL (74-106); Potassium 3.9 mmol/L (3.5-5.1); Sodium 135 mmol/L (136-145); Total Protein 7.9 g/dL (6.4-8.2)
[2024-08-25 09:01] LABS: Diff Comment RBC Morph Reviewed; Macrocytosis 2+
[2024-08-27 16:50] LABS: Cancer Ag 15-3 20 U/mL (<30)
== END 2024-08-25 02:28 | disposition home or self-care (01) ==
PROVIDERS: PCP Nurse Practitioner Adult Health; Visit Provider Nurse Practitioner
DX: C50.912 Malignant neoplasm of unspecified site of left female breast (principal); Z17.0 Estrogen receptor positive status [ER+]
CPT/HCPCS: 36415; 80053; 86300; 85025

== ENCOUNTER 2024-09-07 02:39 | Outpatient (CLI) | payer BC, SELFPAY ==
[2024-09-07 10:24] LABS: Abs Immature Grans 0.01 10^3/uL (0.0-0.06); Absolute Basophil Count 0.04 10^3/uL (0.0-0.2); Absolute Eosinophil Count 0.04 10^3/uL (0.0-0.7); Absolute Lymphocyte Count 0.52 10^3/uL (1.2-3.4); Absolute Monocyte Count 0.26 10^3/uL (0.1-0.8); Absolute Neutrophil Count 1.16 10^3/uL (1.2-6.7); HCT 35.2 % (36.0-46.0); HGB 12.6 g/dL (11.2-15.7); Immature Grans % 0.5 %; Lymphocytes % 25.6 %; MCH 38.5 pg (27.0-33.0); MCHC 35.8 % (32.0-36.0); MCV 108 fL (80-95); MPV 9.5 fL (8.0-11.0); Monocytes % 12.8 %; Neutrophils % 57.1 %; Platelet Count 166 10^3/uL (130-400); RBC 3.27 10^6/uL (3.93-5.22); RDW-SD 51.5 fL; WBC 2.03 10^3/uL (4.4-10.8)
[2024-09-07 10:40] LABS: ALT 17 U/L (14-59); AST 16 U/L (15-37); Albumin 3.9 g/dL (3.4-5.0); Alkaline Phosphatase 71 U/L (46-116); Anion Gap 11.7 mmol/L (3-11); BUN 8 mg/dL (7-18); Bilirubin, Total 0.47 mg/dL (0.2-1.0); CO2 24.3 mmol/L (21.0-32.0); CREATININE 0.7 mg/dL (0.55-1.02); Calcium 9.3 mg/dL (8.5-10.1); Chloride 103 mmol/L (98-107); Estimated GFR 101.44 (mL/min/1.73m2); Glucose 97 mg/dL (74-106); Potassium 4.5 mmol/L (3.5-5.1); Sodium 139 mmol/L (136-145); Total Protein 7.6 g/dL (6.4-8.2)
[2024-09-09 15:56] LABS: Cancer Ag 15-3 18 U/mL (<30)
== END 2024-09-07 02:40 | disposition home or self-care (01) ==
PROVIDERS: PCP Nurse Practitioner Adult Health; Visit Provider Nurse Practitioner
DX: E03.9 Hypothyroidism, unspecified (principal); C50.919 Malignant neoplasm of unspecified site of unspecified female breast; C79.51 Secondary malignant neoplasm of bone; C50.912 Malignant neoplasm of unspecified site of left female breast; Z17.0 Estrogen receptor positive status [ER+]
CPT/HCPCS: 36415; 80053; 86300; 84443; 85025

== ENCOUNTER 2024-09-22 02:02 | Outpatient (CLI) | payer BC, SELFPAY ==
[2024-09-22 09:15] LABS: Abs Immature Grans 0.02 10^3/uL (0.0-0.06); Absolute Eosinophil Count 0.11 10^3/uL (0.0-0.7); HCT 35.6 % (36.0-46.0); HGB 12.6 g/dL (11.2-15.7); MCH 37.5 pg (27.0-33.0); MCHC 35.4 % (32.0-36.0); MCV 106 fL (80-95); MPV 9.8 fL (8.0-11.0); Platelet Count 260 10^3/uL (130-400); RBC 3.36 10^6/uL (3.93-5.22); RDW-SD 50.4 fL; WBC 2.29 10^3/uL (4.4-10.8)
[2024-09-22 09:26] LABS: ALT 17 U/L (14-59); AST 15 U/L (15-37); Albumin 3.9 g/dL (3.4-5.0); Alkaline Phosphatase 66 U/L (46-116); Anion Gap 13.6 mmol/L (3-11); BUN 8 mg/dL (7-18); Bilirubin, Total 0.59 mg/dL (0.2-1.0); CO2 24.4 mmol/L (21.0-32.0); CREATININE 0.8 mg/dL (0.55-1.02); Calcium 9.5 mg/dL (8.5-10.1); Chloride 102 mmol/L (98-107); Estimated GFR 85.89 (mL/min/1.73m2); Glucose 102 mg/dL (74-106); Sodium 140 mmol/L (136-145); Total Protein 7.7 g/dL (6.4-8.2)
[2024-09-22 09:42] LABS: Absolute Lymphocyte Count 0.73 10^3/uL (1.2-3.4); Absolute Monocyte Count 0.21 10^3/uL (0.1-0.8); Absolute Neutrophil Count 1.21 10^3/uL (1.2-6.7); Atypical Lymphocytes % 2 %; Diff Comment Manual Differential; Macrocytosis 2+
[2024-09-22 10:28] LABS: Absolute Basophil Count 0.02 10^3/uL (0.0-0.2)
[2024-09-23 18:36] LABS: Cancer Ag 15-3 18 U/mL (<30)
== END 2024-09-22 02:03 | disposition home or self-care (01) ==
PROVIDERS: PCP Nurse Practitioner Adult Health; Visit Provider Nurse Practitioner
DX: C79.51 Secondary malignant neoplasm of bone; C50.912 Malignant neoplasm of unspecified site of left female breast; Z17.0 Estrogen receptor positive status [ER+]
CPT/HCPCS: 36415; 80053; 80061; 86300; 84443; 85025

== ENCOUNTER 2024-10-05 03:11 | Outpatient (CLI) | payer BC, SELFPAY ==
[2024-10-05 11:02] LABS: Abs Immature Grans 0.01 10^3/uL (0.0-0.06); Absolute Basophil Count 0.04 10^3/uL (0.0-0.2); Absolute Eosinophil Count 0.03 10^3/uL (0.0-0.7); Absolute Lymphocyte Count 0.56 10^3/uL (1.2-3.4); Absolute Monocyte Count 0.28 10^3/uL (0.1-0.8); Basophils % 1.5 %; Eosinophils % 1.1 %; Immature Grans % 0.4 %; Lymphocytes % 21.4 %; MCH 37.9 pg (27.0-33.0); MCHC 36.4 % (32.0-36.0); MCV 104 fL (80-95); MPV 9.5 fL (8.0-11.0); Monocytes % 10.7 %; Neutrophils % 64.9 %; Platelet Count 167 10^3/uL (130-400); RBC 3.17 10^6/uL (3.93-5.22); RDW 13.1 % (11.7-14.6); RDW-SD 49.9 fL; WBC 2.62 10^3/uL (4.4-10.8)
[2024-10-05 11:24] LABS: ALT 16 U/L (14-59); AST 13 U/L (15-37); Albumin 3.6 g/dL (3.4-5.0); Alkaline Phosphatase 72 U/L (46-116); Anion Gap 9.9 mmol/L (3-11); BUN 8 mg/dL (7-18); Bilirubin, Total 0.33 mg/dL (0.2-1.0); CO2 25.1 mmol/L (21.0-32.0); CREATININE 0.7 mg/dL (0.55-1.02); Calcium 9.3 mg/dL (8.5-10.1); Chloride 102 mmol/L (98-107); Estimated GFR 100.81 (mL/min/1.73m2); Glucose 98 mg/dL (74-106); Sodium 137 mmol/L (136-145); Total Protein 7.6 g/dL (6.4-8.2)
[2024-10-06 19:17] LABS: Cancer Ag 15-3 17 U/mL (<30)
== END 2024-10-05 03:12 | disposition home or self-care (01) ==
PROVIDERS: Internal Medicine Hematology & Oncology; PCP Nurse Practitioner Adult Health; Visit Provider Nurse Practitioner
DX: C79.51 Secondary malignant neoplasm of bone; C50.912 Malignant neoplasm of unspecified site of left female breast; Z17.0 Estrogen receptor positive status [ER+]
CPT/HCPCS: 36415; 80053; 86300; 85025

== ENCOUNTER 2024-11-02 04:45 | Outpatient (CLI) | payer BC, SELFPAY ==
[2024-11-02 11:19] LABS: Abs Immature Grans 0.01 10^3/uL (0.0-0.06); Absolute Basophil Count 0.03 10^3/uL (0.0-0.2); Absolute Eosinophil Count 0.05 10^3/uL (0.0-0.7); Absolute Lymphocyte Count 0.52 10^3/uL (1.2-3.4); Absolute Monocyte Count 0.27 10^3/uL (0.1-0.8); Basophils % 1.4 %; Eosinophils % 2.3 %; HCT 34.6 % (36.0-46.0); HGB 12.1 g/dL (11.2-15.7); Immature Grans % 0.5 %; Lymphocytes % 23.9 %; MCH 37.1 pg (27.0-33.0); MPV 9.9 fL (8.0-11.0); Monocytes % 12.4 %; Neutrophils % 59.5 %; Platelet Count 138 10^3/uL (130-400); RBC 3.26 10^6/uL (3.93-5.22); RDW 13.1 % (11.7-14.6); RDW-SD 51.5 fL; WBC 2.18 10^3/uL (4.4-10.8)
[2024-11-02 11:24] LABS: MCV 106 fL (80-95)
[2024-11-02 11:34] LABS: ALT 17 U/L (14-59); AST 13 U/L (15-37); Albumin 3.6 g/dL (3.4-5.0); Alkaline Phosphatase 60 U/L (46-116); Anion Gap 9.6 mmol/L (3-11); BUN 10 mg/dL (7-18); Bilirubin, Total 0.26 mg/dL (0.2-1.0); CO2 27.4 mmol/L (21.0-32.0); CREATININE 0.8 mg/dL (0.55-1.02); Chloride 102 mmol/L (98-107); Estimated GFR 85.89 (mL/min/1.73m2); Glucose 95 mg/dL (74-106); Potassium 3.8 mmol/L (3.5-5.1); Sodium 139 mmol/L (136-145); Total Protein 7.4 g/dL (6.4-8.2)
[2024-11-02 11:40] LABS: Calcium 9.3 mg/dL (8.5-10.1)
[2024-11-04 12:04] LABS: Cancer Ag 15-3 16 U/mL (<30)
== END 2024-11-02 04:46 | disposition home or self-care (01) ==
PROVIDERS: PCP Nurse Practitioner Adult Health; Referring Provider Nurse Practitioner; Visit Provider Nurse Practitioner
DX: C79.51 Secondary malignant neoplasm of bone; C50.912 Malignant neoplasm of unspecified site of left female breast; Z17.0 Estrogen receptor positive status [ER+]
CPT/HCPCS: 36415; 80053; 86300; 85025

== ENCOUNTER 2024-11-30 03:22 | Outpatient (CLI) | payer BC, SELFPAY ==
[2024-11-30 10:50] LABS: Abs Immature Grans 0.01 10^3/uL (0.0-0.06); Absolute Basophil Count 0.03 10^3/uL (0.0-0.2); Absolute Eosinophil Count 0.12 10^3/uL (0.0-0.7); Absolute Lymphocyte Count 0.52 10^3/uL (1.2-3.4); Absolute Monocyte Count 0.38 10^3/uL (0.1-0.8); Absolute Neutrophil Count 1.87 10^3/uL (1.2-6.7); Eosinophils % 4.1 %; HCT 34.8 % (36.0-46.0); HGB 12.2 g/dL (11.2-15.7); Immature Grans % 0.3 %; Lymphocytes % 17.7 %; MCH 36.2 pg (27.0-33.0); MCHC 35.1 % (32.0-36.0); MCV 103 fL (80-95); MPV 9.7 fL (8.0-11.0); Neutrophils % 63.9 %; Platelet Count 160 10^3/uL (130-400); RBC 3.37 10^6/uL (3.93-5.22); RDW 13.3 % (11.7-14.6); RDW-SD 50.9 fL; WBC 2.93 10^3/uL (4.4-10.8)
[2024-11-30 11:06] LABS: ALT 16 U/L (14-59); AST 15 U/L (15-37); Albumin 3.8 g/dL (3.4-5.0); Alkaline Phosphatase 74 U/L (46-116); Anion Gap 11.4 mmol/L (3-11); BUN 6 mg/dL (7-18); Bilirubin, Total 0.47 mg/dL (0.2-1.0); CO2 26.6 mmol/L (21.0-32.0); CREATININE 0.7 mg/dL (0.55-1.02); Calcium 9.5 mg/dL (8.5-10.1); Chloride 102 mmol/L (98-107); Estimated GFR 100.81 (mL/min/1.73m2); Glucose 107 mg/dL (74-106); Potassium 3.5 mmol/L (3.5-5.1); Sodium 140 mmol/L (136-145); Total Protein 7.8 g/dL (6.4-8.2)
[2024-12-03 13:02] LABS: Cancer Ag 15-3 17 U/mL (<30)
== END 2024-11-30 03:23 | disposition home or self-care (01) ==
LOC: LBO 03:22
PROVIDERS: PCP Nurse Practitioner Adult Health; Visit Provider Nurse Practitioner
DX: C50.919 Malignant neoplasm of unspecified site of unspecified female breast (principal); C79.51 Secondary malignant neoplasm of bone; C50.912 Malignant neoplasm of unspecified site of left female breast; Z17.0 Estrogen receptor positive status [ER+]
CPT/HCPCS: 36415; 80053; 86300; 85025

== ENCOUNTER 2024-12-28 03:18 | Outpatient (CLI) | payer BC, SELFPAY ==
[2024-12-28 10:13] LABS: Absolute Basophil Count 0.02 10^3/uL (0.0-0.2); Absolute Eosinophil Count 0.05 10^3/uL (0.0-0.7); Absolute Lymphocyte Count 0.54 10^3/uL (1.2-3.4); Absolute Monocyte Count 0.25 10^3/uL (0.1-0.8); Absolute Neutrophil Count 0.91 10^3/uL (1.2-6.7); Basophils % 1.1 %; Eosinophils % 2.8 %; HCT 34.7 % (36.0-46.0); HGB 12.2 g/dL (11.2-15.7); Lymphocytes % 30.5 %; MCH 36.4 pg (27.0-33.0); MCHC 35.2 % (32.0-36.0); MCV 104 fL (80-95); MPV 9.9 fL (8.0-11.0); Monocytes % 14.1 %; Neutrophils % 51.5 %; Platelet Count 134 10^3/uL (130-400); RBC 3.35 10^6/uL (3.93-5.22); RDW 14.1 % (11.7-14.6); RDW-SD 53.6 fL
[2024-12-28 10:32] LABS: ALT 16 U/L (14-59); AST 14 U/L (15-37); Albumin 3.8 g/dL (3.4-5.0); Alkaline Phosphatase 60 U/L (46-116); Anion Gap 11.5 mmol/L (3-11); BUN 12 mg/dL (7-18); Bilirubin, Total 0.44 mg/dL (0.2-1.0); CO2 25.5 mmol/L (21.0-32.0); CREATININE 0.8 mg/dL (0.55-1.02); Calcium 9.6 mg/dL (8.5-10.1); Chloride 99 mmol/L (98-107); Estimated GFR 85.89 (mL/min/1.73m2); Glucose 99 mg/dL (74-106); Potassium 4.3 mmol/L (3.5-5.1); Sodium 136 mmol/L (136-145); Total Protein 7.7 g/dL (6.4-8.2)
[2024-12-28 10:48] LABS: Diff Comment Agrees w/ Instrument; RBC Morphology Normal; WBC 1.77 10^3/uL (4.4-10.8)
[2024-12-30 09:46] LABS: Cancer Ag 15-3 18 U/mL (<30)
== END 2024-12-28 03:19 | disposition home or self-care (01) ==
LOC: LBO 03:18
PROVIDERS: PCP Nurse Practitioner Adult Health; Visit Provider Internal Medicine
DX: C50.912 Malignant neoplasm of unspecified site of left female breast (principal); C79.51 Secondary malignant neoplasm of bone; Z17.0 Estrogen receptor positive status [ER+]
CPT/HCPCS: 36415; 80053; 86300; 85025

== ENCOUNTER 2025-01-04 01:19 | Outpatient (CLI) | payer BC, SELFPAY ==
[2025-01-04 10:37] LABS: Abs Immature Grans 0.03 10^3/uL (0.0-0.06); Absolute Basophil Count 0.05 10^3/uL (0.0-0.2); Absolute Eosinophil Count 0.05 10^3/uL (0.0-0.7); Absolute Lymphocyte Count 0.75 10^3/uL (1.2-3.4); Absolute Monocyte Count 0.69 10^3/uL (0.1-0.8); Absolute Neutrophil Count 2.19 10^3/uL (1.2-6.7); Basophils % 1.3 %; Eosinophils % 1.3 %; HCT 35.8 % (36.0-46.0); HGB 12.5 g/dL (11.2-15.7); Immature Grans % 0.8 %; Lymphocytes % 19.9 %; MCH 36.3 pg (27.0-33.0); MCHC 34.9 % (32.0-36.0); MCV 104 fL (80-95); MPV 9.4 fL (8.0-11.0); Monocytes % 18.4 %; Neutrophils % 58.3 %; Platelet Count 218 10^3/uL (130-400); RBC 3.44 10^6/uL (3.93-5.22); RDW 14.2 % (11.7-14.6); RDW-SD 54.4 fL; WBC 3.76 10^3/uL (4.4-10.8)
[2025-01-04 11:01] LABS: Anion Gap 8.7 mmol/L (3-11); BUN 7 mg/dL (7-18); CO2 26.3 mmol/L (21.0-32.0); CREATININE 0.7 mg/dL (0.55-1.02); Calcium 9.4 mg/dL (8.5-10.1); Calculated LDL 131 mg/dL (<100); Chloride 99 mmol/L (98-107); Cholesterol 217 mg/dL (<200); Estimated GFR 100.81 (mL/min/1.73m2); Glucose 103 mg/dL (74-106); HDL Cholesterol 70 mg/dL (40-60); Potassium 4.1 mmol/L (3.5-5.1); Sodium 134 mmol/L (136-145); TSH (W/Ref FT4) 0.13 uIU/mL (0.36-3.74); Triglyceride 83 mg/dL (<150)
[2025-01-04 11:30] LABS: FREE T4 1.71 ng/dL (0.76-1.46)
== END 2025-01-04 01:20 | disposition home or self-care (01) ==
PROVIDERS: PCP Nurse Practitioner Adult Health; Visit Provider Nurse Practitioner
DX: E78.89 Other lipoprotein metabolism disorders (principal); E03.9 Hypothyroidism, unspecified; Z13.220 Encounter for screening for lipoid disorders; Z13.1 Encounter for screening for diabetes mellitus
CPT/HCPCS: 36415; 80048; 80061; 84439; 84443; 85025

== ENCOUNTER 2025-01-12 09:50 | Outpatient (CLI) | payer BC, SELFPAY ==
[2025-01-12 09:56] LABS: Abs Immature Grans 0.02 10^3/uL (0.0-0.06); Absolute Basophil Count 0.07 10^3/uL (0.0-0.2); Absolute Lymphocyte Count 0.76 10^3/uL (1.2-3.4); Absolute Monocyte Count 0.28 10^3/uL (0.1-0.8); Absolute Neutrophil Count 2.69 10^3/uL (1.2-6.7); Basophils % 1.8 %; Eosinophils % 2.6 %; HCT 35.4 % (36.0-46.0); HGB 12.2 g/dL (11.2-15.7); Immature Grans % 0.5 %; Lymphocytes % 19.4 %; MCH 36.3 pg (27.0-33.0); MCHC 34.5 % (32.0-36.0); MCV 105 fL (80-95); MPV 9.3 fL (8.0-11.0); Monocytes % 7.1 %; Neutrophils % 68.6 %; Platelet Count 277 10^3/uL (130-400); RBC 3.36 10^6/uL (3.93-5.22); RDW 14.4 % (11.7-14.6); RDW-SD 55.5 fL; WBC 3.92 10^3/uL (4.4-10.8)
[2025-01-12 10:12] LABS: ALT 19 U/L (14-59); AST 13 U/L (15-37); Albumin 3.6 g/dL (3.4-5.0); Alkaline Phosphatase 68 U/L (46-116); Anion Gap 9.7 mmol/L (3-11); BUN 9 mg/dL (7-18); CO2 26.3 mmol/L (21.0-32.0); CREATININE 0.8 mg/dL (0.55-1.02); Calcium 9.7 mg/dL (8.5-10.1); Chloride 101 mmol/L (98-107); Estimated GFR 85.89 (mL/min/1.73m2); Glucose 104 mg/dL (74-106); Potassium 4.3 mmol/L (3.5-5.1); Sodium 137 mmol/L (136-145); Total Protein 7.5 g/dL (6.4-8.2)
== END 2025-01-12 09:51 | disposition home or self-care (01) ==
LOC: LBO 09:50
PROVIDERS: PCP Nurse Practitioner Adult Health; Visit Provider Nurse Practitioner
DX: C50.919 Malignant neoplasm of unspecified site of unspecified female breast (principal); C79.51 Secondary malignant neoplasm of bone; C50.912 Malignant neoplasm of unspecified site of left female breast; Z17.0 Estrogen receptor positive status [ER+]
CPT/HCPCS: 36415; 80053; 85025

== ENCOUNTER 2025-01-28 02:57 | Outpatient (CLI) | payer BC, SELFPAY ==
[2025-01-28 10:14] LABS: Absolute Eosinophil Count 0.04 10^3/uL (0.0-0.7); HCT 35.1 % (36.0-46.0); HGB 12.2 g/dL (11.2-15.7); MCH 36.3 pg (27.0-33.0); MCHC 34.8 % (32.0-36.0); MCV 105 fL (80-95); MPV 9.7 fL (8.0-11.0); Platelet Count 136 10^3/uL (130-400); RBC 3.36 10^6/uL (3.93-5.22); RDW 15.1 % (11.7-14.6); RDW-SD 57.7 fL
[2025-01-28 10:31] LABS: ALT 18 U/L (14-59); AST 13 U/L (15-37); Albumin 3.9 g/dL (3.4-5.0); Alkaline Phosphatase 65 U/L (46-116); Anion Gap 10.3 mmol/L (3-11); BUN 9 mg/dL (7-18); Bilirubin, Total 0.49 mg/dL (0.2-1.0); CO2 26.7 mmol/L (21.0-32.0); CREATININE 0.8 mg/dL (0.55-1.02); Calcium 9.7 mg/dL (8.5-10.1); Chloride 101 mmol/L (98-107); Estimated GFR 85.89 (mL/min/1.73m2); Glucose 101 mg/dL (74-106); Potassium 4.1 mmol/L (3.5-5.1); Sodium 138 mmol/L (136-145); Total Protein 7.7 g/dL (6.4-8.2)
[2025-01-28 10:42] LABS: FREE T4 1.54 ng/dL (0.76-1.46); TSH 0.67 uIU/mL (0.36-3.74)
[2025-01-28 10:46] LABS: Absolute Lymphocyte Count 0.49 10^3/uL (1.2-3.4); Absolute Monocyte Count 0.22 10^3/uL (0.1-0.8); Absolute Neutrophil Count 1.12 10^3/uL (1.2-6.7)
[2025-01-28 10:51] LABS: Diff Comment Manual Differential; RBC Morphology Normal; WBC 1.87 10^3/uL (4.4-10.8)
[2025-01-30 11:19] LABS: Cancer Ag 15-3 19 U/mL (<30)
== END 2025-01-28 02:58 | disposition home or self-care (01) ==
LOC: LBO 02:57
PROVIDERS: Nurse Practitioner; PCP Nurse Practitioner Adult Health; Visit Provider Nurse Practitioner Adult Health
DX: E03.9 Hypothyroidism, unspecified (principal); C50.919 Malignant neoplasm of unspecified site of unspecified female breast; C79.51 Secondary malignant neoplasm of bone; C50.912 Malignant neoplasm of unspecified site of left female breast; Z17.0 Estrogen receptor positive status [ER+]
CPT/HCPCS: 36415; 80053; 86300; 84439; 84443; 85025

== ENCOUNTER 2025-02-25 02:35 | Outpatient (CLI) | payer BC, SELFPAY ==
[2025-02-25 11:09] LABS: Abs Immature Grans 0.01 10^3/uL (0.0-0.06); Absolute Basophil Count 0.03 10^3/uL (0.0-0.2); Absolute Eosinophil Count 0.04 10^3/uL (0.0-0.7); Absolute Lymphocyte Count 0.54 10^3/uL (1.2-3.4); Absolute Monocyte Count 0.17 10^3/uL (0.1-0.8); Basophils % 1.3 %; Eosinophils % 1.7 %; HCT 34.1 % (36.0-46.0); HGB 12.2 g/dL (11.2-15.7); Immature Grans % 0.4 %; Lymphocytes % 23.6 %; MCH 36.9 pg (27.0-33.0); MCHC 35.8 % (32.0-36.0); MCV 103 fL (80-95); MPV 10.3 fL (8.0-11.0); Monocytes % 7.4 %; Neutrophils % 65.6 %; Platelet Count 135 10^3/uL (130-400); RBC 3.31 10^6/uL (3.93-5.22); RDW 15.3 % (11.7-14.6); RDW-SD 57.8 fL; WBC 2.29 10^3/uL (4.4-10.8)
[2025-02-25 11:20] LABS: ALT 14 U/L (14-59); AST 13 U/L (15-37); Albumin 3.8 g/dL (3.4-5.0); Alkaline Phosphatase 60 U/L (46-116); Anion Gap 7.5 mmol/L (3-11); BUN 12 mg/dL (7-18); Bilirubin, Total 0.4 mg/dL (0.2-1.0); CO2 25.5 mmol/L (21.0-32.0); CREATININE 0.7 mg/dL (0.55-1.02); Calcium 9.8 mg/dL (8.5-10.1); Chloride 105 mmol/L (98-107); Estimated GFR 100.81 (mL/min/1.73m2); Glucose 106 mg/dL (74-106); Potassium 3.6 mmol/L (3.5-5.1); Sodium 138 mmol/L (136-145); Total Protein 7.5 g/dL (6.4-8.2)
[2025-02-26 18:05] LABS: Cancer Ag 15-3 18 U/mL (<30)
== END 2025-02-25 02:36 | disposition home or self-care (01) ==
PROVIDERS: PCP Nurse Practitioner Adult Health; Visit Provider Nurse Practitioner
DX: C50.919 Malignant neoplasm of unspecified site of unspecified female breast (principal); C79.51 Secondary malignant neoplasm of bone; C50.912 Malignant neoplasm of unspecified site of left female breast; Z17.0 Estrogen receptor positive status [ER+]
CPT/HCPCS: 36415; 80053; 86300; 85025

== ENCOUNTER 2025-03-29 00:41 | Outpatient (CLI) | payer BC, SELFPAY ==
[2025-03-29 10:06] LABS: HGB 12.8 g/dL (11.2-15.7); MCHC 35.6 % (32.0-36.0); MCV 104 fL (80-95); MPV 9.5 fL (8.0-11.0); Platelet Count 159 10^3/uL (130-400); RBC 3.46 10^6/uL (3.93-5.22); RDW 14.4 % (11.7-14.6); RDW-SD 54.6 fL; WBC 2.02 10^3/uL (4.4-10.8)
[2025-03-29 10:21] LABS: ALT 17 U/L (14-59); AST 15 U/L (15-37); Albumin 3.8 g/dL (3.4-5.0); Alkaline Phosphatase 58 U/L (46-116); Anion Gap 9.8 mmol/L (3-11); BUN 10 mg/dL (7-18); Bilirubin, Total 0.4 mg/dL (0.2-1.0); CO2 26.2 mmol/L (21.0-32.0); CREATININE 0.7 mg/dL (0.55-1.02); Calcium 9.6 mg/dL (8.5-10.1); Chloride 102 mmol/L (98-107); Estimated GFR 100.81 (mL/min/1.73m2); Glucose 116 mg/dL (74-106); Sodium 138 mmol/L (136-145); Total Protein 7.6 g/dL (6.4-8.2)
[2025-03-29 10:29] LABS: Absolute Basophil Count 0.04 10^3/uL (0.0-0.2); Absolute Eosinophil Count 0.04 10^3/uL (0.0-0.7); Absolute Lymphocyte Count 0.69 10^3/uL (1.2-3.4); Absolute Neutrophil Count 1.03 10^3/uL (1.2-6.7); Atypical Lymphocytes % 1 %; Diff Comment Manual Differential; Metamyelocytes % 1; RBC Morphology Normal
[2025-03-29 11:10] LABS: Lab Add On Test DONE
[2025-03-29 11:41] LABS: FREE T4 1.52 ng/dL (0.76-1.46); TSH 0.18 uIU/mL (0.36-3.74)
[2025-03-31 10:08] LABS: Cancer Ag 15-3 17 U/mL (<30)
== END 2025-03-29 00:42 | disposition home or self-care (01) ==
PROVIDERS: PCP Nurse Practitioner Adult Health; Visit Provider Nurse Practitioner
DX: E03.9 Hypothyroidism, unspecified (principal); C50.919 Malignant neoplasm of unspecified site of unspecified female breast; C79.51 Secondary malignant neoplasm of bone; C50.912 Malignant neoplasm of unspecified site of left female breast; Z17.0 Estrogen receptor positive status [ER+]
CPT/HCPCS: 36415; 80053; 86300; 84439; 84443; 85025

== ENCOUNTER 2025-04-06 01:54 | Outpatient (CLI) | payer BC, SELFPAY ==
[2025-04-06 14:20] LABS: Abs Immature Grans 0.02 10^3/uL (0.0-0.06); Absolute Basophil Count 0.07 10^3/uL (0.0-0.2); Absolute Eosinophil Count 0.08 10^3/uL (0.0-0.7); Absolute Monocyte Count 0.69 10^3/uL (0.1-0.8); Absolute Neutrophil Count 3.42 10^3/uL (1.2-6.7); Basophils % 1.3 %; Eosinophils % 1.5 %; HCT 37.3 % (36.0-46.0); Immature Grans % 0.4 %; Lymphocytes % 18.9 %; MCH 36.1 pg (27.0-33.0); MCHC 34.9 % (32.0-36.0); MCV 104 fL (80-95); MPV 10.1 fL (8.0-11.0); Monocytes % 13.1 %; Neutrophils % 64.8 %; Platelet Count 295 10^3/uL (130-400); RDW 14.3 % (11.7-14.6); RDW-SD 55.1 fL; WBC 5.28 10^3/uL (4.4-10.8)
[2025-04-06 14:29] LABS: ALT 75 U/L (14-59); AST 56 U/L (15-37); Alkaline Phosphatase 70 U/L (46-116); Anion Gap 8.4 mmol/L (3-11); BUN 13 mg/dL (7-18); Bilirubin, Total 0.3 mg/dL (0.2-1.0); CO2 26.6 mmol/L (21.0-32.0); CREATININE 0.7 mg/dL (0.55-1.02); Calcium 9.7 mg/dL (8.5-10.1); Chloride 101 mmol/L (98-107); Estimated GFR 100.81 (mL/min/1.73m2); Glucose 94 mg/dL (74-106); Potassium 4.9 mmol/L (3.5-5.1); Sodium 136 mmol/L (136-145); Total Protein 7.4 g/dL (6.4-8.2)
[2025-04-09 15:31] LABS: Cancer Ag 15-3 18 U/mL (<30)
== END 2025-04-06 01:55 | disposition home or self-care (01) ==
PROVIDERS: PCP Nurse Practitioner Adult Health; Visit Provider Nurse Practitioner
DX: C50.412 Malignant neoplasm of upper-outer quadrant of left female breast (principal); Z17.0 Estrogen receptor positive status [ER+]; C79.51 Secondary malignant neoplasm of bone
CPT/HCPCS: 36415; 80053; 86300; 85025

== ENCOUNTER 2025-05-04 02:06 | Outpatient (CLI) | payer BC, SELFPAY ==
[2025-05-04 09:35] LABS: Abs Immature Grans 0.01 10^3/uL (0.0-0.06); Absolute Basophil Count 0.04 10^3/uL (0.0-0.2); Absolute Eosinophil Count 0.06 10^3/uL (0.0-0.7); Absolute Lymphocyte Count 1.09 10^3/uL (1.2-3.4); Absolute Neutrophil Count 1.18 10^3/uL (1.2-6.7); Basophils % 1.4 %; Eosinophils % 2.2 %; HCT 35.5 % (36.0-46.0); HGB 12.3 g/dL (11.2-15.7); Immature Grans % 0.4 %; Lymphocytes % 39.2 %; MCHC 34.6 % (32.0-36.0); MCV 104 fL (80-95); MPV 9.3 fL (8.0-11.0); Monocytes % 14.4 %; Neutrophils % 42.4 %; Platelet Count 183 10^3/uL (130-400); RBC 3.42 10^6/uL (3.93-5.22); RDW 14.6 % (11.7-14.6); RDW-SD 55.4 fL; WBC 2.78 10^3/uL (4.4-10.8)
[2025-05-04 10:01] LABS: ALT 18 U/L (14-59); AST 18 U/L (15-37); Albumin 3.9 g/dL (3.4-5.0); Alkaline Phosphatase 71 U/L (46-116); Anion Gap 9.5 mmol/L (3-11); BUN 11 mg/dL (7-18); Bilirubin, Total 0.4 mg/dL (0.2-1.0); CO2 26.5 mmol/L (21.0-32.0); CREATININE 0.7 mg/dL (0.55-1.02); Calcium 9.2 mg/dL (8.5-10.1); Chloride 101 mmol/L (98-107); Estimated GFR 100.81 (mL/min/1.73m2); Glucose 99 mg/dL (74-106); Potassium 4.4 mmol/L (3.5-5.1); Sodium 137 mmol/L (136-145); Total Protein 7.6 g/dL (6.4-8.2)
[2025-05-07 12:50] LABS: Cancer Ag 15-3 18 U/mL (<30)
== END 2025-05-04 02:07 | disposition home or self-care (01) ==
LOC: LBO 02:06
PROVIDERS: PCP Nurse Practitioner Adult Health; Visit Provider Nurse Practitioner
DX: C50.412 Malignant neoplasm of upper-outer quadrant of left female breast (principal); Z17.0 Estrogen receptor positive status [ER+]; C79.51 Secondary malignant neoplasm of bone
CPT/HCPCS: 36415; 80053; 86300; 85025

== ENCOUNTER 2025-06-01 03:45 | Outpatient (CLI) | payer BC, SELFPAY ==
[2025-06-01 08:07] LABS: WBC 2.73 10^3/uL (4.4-10.8)
[2025-06-01 08:08] LABS: Abs Immature Grans 0.02 10^3/uL (0.0-0.06); HCT 34.6 % (36.0-46.0); HGB 12.3 g/dL (11.2-15.7); Immature Grans % 0.7 %; MCH 36.2 pg (27.0-33.0); MCHC 35.5 % (32.0-36.0); MCV 102 fL (80-95); MPV 9.4 fL (8.0-11.0); Platelet Count 161 10^3/uL (130-400); RBC 3.40 10^6/uL (3.93-5.22); RDW 15.1 % (11.7-14.6); RDW-SD 56.4 fL
[2025-06-01 08:24] LABS: ALT 21 U/L (14-59); AST 17 U/L (15-37); Albumin 3.9 g/dL (3.4-5.0); Alkaline Phosphatase 63 U/L (46-116); Anion Gap 10.0 mmol/L (3-11); BUN 10 mg/dL (7-18); Bilirubin, Total 0.4 mg/dL (0.2-1.0); CO2 25.0 mmol/L (21.0-32.0); Calcium 9.4 mg/dL (8.5-10.1); Chloride 100 mmol/L (98-107); Estimated GFR 100.81 (mL/min/1.73m2); Glucose 96 mg/dL (74-106); Potassium 4.3 mmol/L (3.5-5.1); Sodium 135 mmol/L (136-145); Total Protein 7.6 g/dL (6.4-8.2)
[2025-06-01 08:32] LABS: TSH (W/Ref FT4) 8.00 uIU/mL (0.36-3.74)
[2025-06-03 11:36] LABS: Cancer Ag 15-3 21 U/mL (<30)
== END 2025-06-01 03:46 | disposition home or self-care (01) ==
PROVIDERS: PCP Nurse Practitioner Adult Health; Visit Provider Nurse Practitioner
DX: E03.9 Hypothyroidism, unspecified (principal); R79.89 Other specified abnormal findings of blood chemistry
CPT/HCPCS: 36415; 80053; 86300; 84439; 84443; 85025

== ENCOUNTER 2025-06-29 04:45 | Outpatient (CLI) | payer BC, SELFPAY ==
[2025-06-29 12:21] LABS: Abs Immature Grans 0.01 10^3/uL (0.0-0.06); HCT 32.8 % (36.0-46.0); HGB 11.4 g/dL (11.2-15.7); Immature Grans % 0.3 %; MCH 36.2 pg (27.0-33.0); MCHC 34.8 % (32.0-36.0); MCV 104 fL (80-95); MPV 9.3 fL (8.0-11.0); Platelet Count 159 10^3/uL (130-400); RBC 3.15 10^6/uL (3.93-5.22); RDW 16.1 % (11.7-14.6); RDW-SD 61.4 fL; WBC 3.01 10^3/uL (4.4-10.8)
[2025-06-29 12:54] LABS: ALT 23 U/L (14-59); AST 24 U/L (15-37); Albumin 3.6 g/dL (3.4-5.0); Alkaline Phosphatase 65 U/L (46-116); Anion Gap 9.0 mmol/L (3-11); BUN 8 mg/dL (7-18); Bilirubin, Total 0.3 mg/dL (0.2-1.0); CO2 27.0 mmol/L (21.0-32.0); Calcium 9.0 mg/dL (8.5-10.1); Chloride 101 mmol/L (98-107); Estimated GFR 104.63 (mL/min/1.73m2); Glucose 101 mg/dL (74-106); Potassium 3.9 mmol/L (3.5-5.1); Sodium 137 mmol/L (136-145); Total Protein 6.9 g/dL (6.4-8.2)
[2025-07-01 16:11] LABS: Cancer Ag 15-3 17 U/mL (<30)
== END 2025-06-29 04:46 | disposition home or self-care (01) ==
LOC: LBO 04:45
PROVIDERS: PCP Nurse Practitioner Adult Health; Visit Provider Nurse Practitioner
DX: C50.412 Malignant neoplasm of upper-outer quadrant of left female breast (principal); Z17.0 Estrogen receptor positive status [ER+]; C79.51 Secondary malignant neoplasm of bone
CPT/HCPCS: 36415; 80053; 86300; 85025

== ENCOUNTER 2025-07-27 02:59 | Outpatient (CLI) | payer BC, SELFPAY ==
[2025-07-27 13:07] LABS: Abs Immature Grans 0.00 10^3/uL (0.0-0.06); HCT 35.5 % (36.0-46.0); HGB 12.7 g/dL (11.2-15.7); Immature Grans % 0.0 %; MCH 36.6 pg (27.0-33.0); MCHC 35.8 % (32.0-36.0); MCV 102 fL (80-95); MPV 9.6 fL (8.0-11.0); Platelet Count 168 10^3/uL (130-400); RBC 3.47 10^6/uL (3.93-5.22); RDW 14.1 % (11.7-14.6); RDW-SD 53.2 fL; WBC 3.12 10^3/uL (4.4-10.8)
[2025-07-27 13:26] LABS: ALT 18 U/L (14-59); AST 16 U/L (15-37); Albumin 4.2 g/dL (3.4-5.0); Alkaline Phosphatase 66 U/L (46-116); Anion Gap 9.4 mmol/L (3-11); BUN 7 mg/dL (7-18); Bilirubin, Total 0.3 mg/dL (0.2-1.0); CO2 25.6 mmol/L (21.0-32.0); Calcium 9.8 mg/dL (8.5-10.1); Chloride 99 mmol/L (98-107); Estimated GFR 85.89 (mL/min/1.73m2); Glucose 145 mg/dL (74-106); Potassium 3.6 mmol/L (3.5-5.1); Sodium 134 mmol/L (136-145); Total Protein 7.6 g/dL (6.4-8.2)
[2025-07-29 11:43] LABS: Cancer Ag 15-3 20 U/mL (<30)
== END 2025-07-27 03:00 | disposition home or self-care (01) ==
LOC: LBO 02:59
PROVIDERS: PCP Nurse Practitioner Adult Health; Visit Provider Nurse Practitioner
DX: C50.412 Malignant neoplasm of upper-outer quadrant of left female breast (principal); Z17.0 Estrogen receptor positive status [ER+]; C79.51 Secondary malignant neoplasm of bone
CPT/HCPCS: 36415; 80053; 86300; 85025

== ENCOUNTER 2025-09-21 00:07 | Outpatient (CLI) | payer BC, SELFPAY ==
[2025-09-21 12:38] LABS: Abs Immature Grans 0.00 10^3/uL (0.0-0.06); HCT 33.3 % (36.0-46.0); HGB 11.8 g/dL (11.2-15.7); Immature Grans % 0.0 %; MCH 36.2 pg (27.0-33.0); MCHC 35.4 % (32.0-36.0); MCV 102 fL (80-95); MPV 9.4 fL (8.0-11.0); Platelet Count 150 10^3/uL (130-400); RBC 3.26 10^6/uL (3.93-5.22); RDW 13.6 % (11.7-14.6); RDW-SD 51.5 fL; WBC 2.52 10^3/uL (4.4-10.8)
[2025-09-21 12:52] LABS: ALT 19 U/L (14-59); AST 18 U/L (15-37); Albumin 3.9 g/dL (3.4-5.0); Alkaline Phosphatase 67 U/L (46-116); Anion Gap 8.8 mmol/L (3-11); BUN 9 mg/dL (7-18); Bilirubin, Total 0.3 mg/dL (0.2-1.0); CO2 26.2 mmol/L (21.0-32.0); Calcium 9.5 mg/dL (8.5-10.1); Chloride 98 mmol/L (98-107); Estimated GFR 100.19 (mL/min/1.73m2); Glucose 96 mg/dL (74-106); Potassium 4.3 mmol/L (3.5-5.1); Sodium 133 mmol/L (136-145); Total Protein 7.6 g/dL (6.4-8.2)
[2025-09-22 18:10] LABS: Cancer Ag 15-3 18 U/mL (<30)
== END 2025-09-21 00:08 | disposition home or self-care (01) ==
LOC: LBO 00:07
PROVIDERS: PCP Nurse Practitioner Adult Health; Visit Provider Nurse Practitioner
DX: C50.412 Malignant neoplasm of upper-outer quadrant of left female breast (principal); Z17.0 Estrogen receptor positive status [ER+]; C79.51 Secondary malignant neoplasm of bone
CPT/HCPCS: 36415; 80053; 86300; 85025

== ENCOUNTER 2025-10-19 03:32 | Outpatient (CLI) | payer BC, SELFPAY ==
[2025-10-19 07:16] LABS: Abs Immature Grans 0.01 10^3/uL (0.0-0.06); HCT 35.8 % (36.0-46.0); HGB 12.6 g/dL (11.2-15.7); Immature Grans % 0.4 %; MCH 35.8 pg (27.0-33.0); MCHC 35.2 % (32.0-36.0); MCV 102 fL (80-95); MPV 9.4 fL (8.0-11.0); Platelet Count 149 10^3/uL (130-400); RBC 3.52 10^6/uL (3.93-5.22); RDW 13.9 % (11.7-14.6); RDW-SD 52.7 fL; WBC 2.53 10^3/uL (4.4-10.8)
[2025-10-19 07:34] LABS: ALT 11 U/L (10-49); AST 19 U/L (<34); Albumin 4.6 g/dL (3.4-5.0); Alkaline Phosphatase 57 U/L (46-116); Anion Gap 6.4 mmol/L (3-11); BUN 12 mg/dL (9-23); Bilirubin, Total 0.40 mg/dL (0.2-1.2); CO2 26.6 mmol/L (20.0-31.0); Calcium 9.5 mg/dL (8.3-10.6); Chloride 103 mmol/L (98-107); Glucose 85 mg/dL (74-106); Potassium 4.3 mmol/L (3.5-5.1); Sodium 136 mmol/L (136-145); Total Protein 7.5 g/dL (5.7-8.2)
[2025-10-20 16:23] LABS: Cancer Ag 15-3 19 U/mL (<30)
== END 2025-10-19 03:33 | disposition home or self-care (01) ==
LOC: LBO 03:32
PROVIDERS: PCP Nurse Practitioner Adult Health; Visit Provider Nurse Practitioner
DX: C50.412 Malignant neoplasm of upper-outer quadrant of left female breast (principal); Z17.0 Estrogen receptor positive status [ER+]; C79.51 Secondary malignant neoplasm of bone
CPT/HCPCS: 36415; 80053; 86300; 85025

== ENCOUNTER 2025-11-02 01:01 | Outpatient (CLI) | payer BC, SELFPAY ==
[2025-11-02 10:25] LABS: Abs Immature Grans 0.01 10^3/uL (0.0-0.06); HCT 36.9 % (36.0-46.0); HGB 12.8 g/dL (11.2-15.7); Immature Grans % 0.4 %; MCH 35.8 pg (27.0-33.0); MCHC 34.7 % (32.0-36.0); MCV 103 fL (80-95); MPV 9.1 fL (8.0-11.0); Platelet Count 233 10^3/uL (130-400); RBC 3.58 10^6/uL (3.93-5.22); RDW 13.5 % (11.7-14.6); RDW-SD 51.8 fL; WBC 2.49 10^3/uL (4.4-10.8)
[2025-11-02 11:26] LABS: ALT 11 U/L (10-49); AST 18 U/L (<34); Albumin 4.7 g/dL (3.2-5.0); Alkaline Phosphatase 63 U/L (46-116); Anion Gap 7.2 mmol/L (3-11); BUN 10 mg/dL (9-23); Bilirubin, Total 0.50 mg/dL (0.2-1.2); CO2 25.8 mmol/L (20.0-31.0); Calcium 9.6 mg/dL (8.3-10.6); Chloride 103 mmol/L (98-107); Glucose 86 mg/dL (74-106); Potassium 4.5 mmol/L (3.5-5.1); Sodium 136 mmol/L (136-145); Total Protein 7.6 g/dL (5.7-8.2)
[2025-11-04 10:23] LABS: Cancer Ag 15-3 19 U/mL (<30)
== END 2025-11-02 01:02 | disposition home or self-care (01) ==
PROVIDERS: PCP Nurse Practitioner Adult Health; Visit Provider Nurse Practitioner
DX: C50.412 Malignant neoplasm of upper-outer quadrant of left female breast (principal); C79.51 Secondary malignant neoplasm of bone; Z17.0 Estrogen receptor positive status [ER+]
CPT/HCPCS: 36415; 80053; 86300; 85025

== ENCOUNTER 2025-11-16 01:34 | Outpatient (CLI) | payer BC, SELFPAY ==
[2025-11-16 13:41] LABS: Abs Immature Grans 0.02 10^3/uL (0.0-0.06); HCT 34.6 % (36.0-46.0); HGB 12.2 g/dL (11.2-15.7); Immature Grans % 0.6 %; MCH 35.8 pg (27.0-33.0); MCHC 35.3 % (32.0-36.0); MCV 102 fL (80-95); MPV 9.4 fL (8.0-11.0); Platelet Count 160 10^3/uL (130-400); RBC 3.41 10^6/uL (3.93-5.22); RDW 13.9 % (11.7-14.6); RDW-SD 51.8 fL; WBC 3.30 10^3/uL (4.4-10.8)
[2025-11-16 14:31] LABS: ALT 11 U/L (10-49); AST 17 U/L (<34); Albumin 4.7 g/dL (3.2-5.0); Alkaline Phosphatase 52 U/L (46-116); Anion Gap 7.3 mmol/L (3-11); BUN 9 mg/dL (9-23); Bilirubin, Total 0.3 mg/dL (0.2-1.2); CO2 23.7 mmol/L (20.0-31.0); Calcium 9.7 mg/dL (8.3-10.6); Chloride 102 mmol/L (98-107); Glucose 90 mg/dL (74-106); Potassium 3.9 mmol/L (3.5-5.1); Sodium 133 mmol/L (136-145); Total Protein 7.8 g/dL (5.7-8.2)
[2025-11-19 09:23] LABS: Cancer Ag 15-3 19 U/mL (<30)
== END 2025-11-16 01:35 | disposition home or self-care (01) ==
LOC: LBO 01:35
PROVIDERS: PCP Nurse Practitioner Adult Health; Visit Provider Nurse Practitioner
DX: C50.412 Malignant neoplasm of upper-outer quadrant of left female breast (principal); Z17.0 Estrogen receptor positive status [ER+]; C79.51 Secondary malignant neoplasm of bone
CPT/HCPCS: 36415; 80053; 86300; 85025